=== PATIENT | male | born 1950 | race Caucasian/White ===

== ENCOUNTER → 2016-06-06 | Outpatient (CLI) | payer OTHER ==
[~2016-06-06] MED LIST: ASPI1TAB PO; ATOR1TAB21 PO; DRIS50002 PO; LEVO25TA34 PO; LISI20TA3 PO
[2016-06-06 14:13] LABS: BASO % 0.2 % (0.0-1.0); EOS # 0.1 K/mm3 (0.0-0.50); EOS % 1.3 % (0.0-3.0); LARGE UNSTAINED CELL # 0.1 K/mm3 (0.0-0.4); LARGE UNSTAINED CELL % 1.6 % (0.0-4.0); LYMPH # 1.2 K/mm3 (1.5-4.5); LYMPH % 16.1 % (24.0-44.0); MEAN CORPUSCULAR HEMOGLOBIN 33.2 pg (27.0-33.0); MEAN CORPUSCULAR HGB CONC 34.4 g/dl (32.0-36.5); MEAN CORPUSCULAR VOLUME 96.4 fl (80.0-96.0); MONO # 0.3 K/mm3 (0.0-0.8); MONO % 3.6 % (0.0-5.0); NEUTROPHILS # 5.6 K/mm3 (1.8-7.7); NEUTROPHILS % 77.2 % (36.0-66.0); PLATELET COUNT, AUTOMATED 255 k/mm3 (150-450); RED CELL DISTRIBUTION WIDTH 13.1 % (11.5-14.5); WHITE BLOOD COUNT 7.2 K/mm3 (4.0-10.0)
[2016-06-06 14:19] LABS: ALBUMIN 4.4 GM/DL (3.2-5.2); CALCIUM LEVEL 9.1 MG/DL (8.8-10.2); CREATININE FOR GFR 1.38 MG/DL (0.70-1.30); GLOMERULAR FILTRATION RATE 55.2 (>49); PHOSPHORUS LEVEL 2.6 MG/DL (2.5-4.9); POTASSIUM SERUM 4.6 MEQ/L (3.5-5.1)
== END ==
LOC: M SMT 10:52
PROVIDERS: ATTEND Nurse Practitioner Family
DX: N18.3 Chronic kidney disease, stage 3 (moderate) (principal); D63.1 Anemia in chronic kidney disease; N25.81 Secondary hyperparathyroidism of renal origin; E55.9 Vitamin D deficiency, unspecified

== ENCOUNTER 2016-06-08 09:23 | Emergency (ER) | payer MEDICAID, OTHER ==
[2016-06-08] MEDS ORDERED: ONDANSETRON 4MG/2ML VIAL (J2405) As Ordered ONE (09:42)
[2016-06-08] MEDS ORDERED: ASPIRIN 81 MG CHEW TABLET As Ordered ONE (09:42)
[2016-06-08] MEDS ORDERED: MORPHINE 4 MG/ML 1ML SYRINGE As Ordered ONE (09:43)
[2016-06-08] MEDS ORDERED: hydroCHLOROthiazide 25 MG TAB As Ordered ONE (09:43)
[2016-06-08] MEDS ORDERED: LISINOPRIL 10 MG TAB As Ordered ONE (09:43)
[2016-06-08 09:49] LABS: BASO % 0.1 % (0.0-1.0); EOS % 0.5 % (0.0-3.0); LARGE UNSTAINED CELL # 0.1 K/mm3 (0.0-0.4); LARGE UNSTAINED CELL % 0.5 % (0.0-4.0); LYMPH # 0.5 K/mm3 (1.5-4.5); LYMPH % 4.2 % (24.0-44.0); MEAN CORPUSCULAR HEMOGLOBIN 33.4 pg (27.0-33.0); MEAN CORPUSCULAR HGB CONC 35.3 g/dl (32.0-36.5); MEAN CORPUSCULAR VOLUME 94.6 fl (80.0-96.0); MONO # 0.2 K/mm3 (0.0-0.8); MONO % 1.6 % (0.0-5.0); NEUTROPHILS # 11.1 K/mm3 (1.8-7.7); NEUTROPHILS % 93.1 % (36.0-66.0); PLATELET COUNT, AUTOMATED 241 k/mm3 (150-450); RED CELL DISTRIBUTION WIDTH 12.8 % (11.5-14.5)
[2016-06-08 09:57] LABS: INR 1.04
--- NOTE | 2016-06-08 10:11 | REP ---
Clinical: Chest pain. Comparison: 09/05/2014. Findings: COPD and interstitial changes similar to prior examination. Mediastinum and cardiac silhouette normal. No acute consolidation, effusion, or pneumothorax. Skeletal structures intact. Impression: Chronic COPD and interstitial changes. No new acute process. Signed by Tacos Hutchinson MD 06/08/2016 10:02 A
[2016-06-08 10:13] LABS: ANION GAP 8 MEQ/L (8-16); BLOOD UREA NITROGEN 22 MG/DL (7-18); CARBON DIOXIDE LEVEL 28 MEQ/L (21-32); CHLORIDE LEVEL 105 MEQ/L (98-107); CREATININE FOR GFR 1.46 MG/DL (0.70-1.30); GLOMERULAR FILTRATION RATE 51.7 (>49); GLUCOSE, FASTING 178 MG/DL (80-110); POTASSIUM SERUM 4.3 MEQ/L (3.5-5.1); SODIUM LEVEL 141 MEQ/L (136-145)
[2016-06-08] MEDS ORDERED: ISOVUE-370 76% 100ML VIAL (Q9967) As Ordered ONE (10:34)
[2016-06-08] MEDS ORDERED: IPRATROPIUM 0.5MG/ALBUTEROL 2.5MG INH SOL UD 3ML (DUONEB)(J7620) As Ordered ONE (11:02)
--- NOTE | 2016-06-08 11:05 | REP ---
Clinical: Acute chest pain. Technique: Axial contrast enhanced images from the thoracic inlet to the upper abdomen using 100 ml Isovue 370 intravenous contrast material with coronal and sagittal re-formations. Findings: Satisfactory enhancement of the pulmonary vasculature is achieved and no filling defects are identified to suggest pulmonary embolus. Thoracic aorta is normal caliber without aneurysm or dissection. Heart and pericardium are normal. Lung rothman demonstrate moderate to advanced COPD and emphysematous changes with bullae and bronchiectasis as well as trace basilar fibroatelectatic changes. No acute consolidation, pleural effusion or pneumothorax. Impression: No evidence for pulmonary embolus. Advanced chronic COPD and emphysematous changes. No acute pleuroparenchymal or mediastinal process. Signed by Tacos Hutchinson MD 06/08/2016 10:56 A
[2016-06-08] MEDS ORDERED: predniSONE 20 MG TAB As Ordered ONE (13:51)
--- NOTE | 2016-06-08 14:02 | EDDOCDS ---
Physician Documentation [facility] Name: Guicho Luque Age: 66 yrs Sex: Male : 1950 Arrival Date: 06/08/2016 Time: 09:23 Bed OBSERVATION Private MD: Trevor Medrano P Disposition: 06/08/16 13:37 Discharged to Home/Self Care. Impression: Chronic obstructive pulmonary disease, unspecified. - Condition is Stable. - Discharge Instructions: Chronic Obstructive Pulmonary Disease, How to Use a Nebulizer. - Prescriptions for Prednisone 20 mg Oral Tablet - take 3 tablet by ORAL route once daily for 5 days; 15 tablet. Home Nebulizer - Dx: (type in). Duration: (type in). ipratropium- albuterol 0.5 mg-3 mg(2.5 mg base)/3 mL Inhalation Solution for Nebulization - inhale 1 ampule by INHALATION route 4 times per day As needed; 1 box. - Medication Reconciliation, Local Pharmacy Hours form. - Follow up: Trevor Medrano; When: Call to arrange an appointment. Follow up: Germania Adame RPA-C; When: Call to arrange an appointment. - Problem is an acute exacerbation. - Symptoms have improved. Historical: - Allergies: Codeine Sulfate; - Home Meds: 1. Synthroid 25 mcg oral tab once daily 2. lisinopril 10 mg oral tab twice a day (Last dose: 06/07/2016) 3. oxybutynin chloride 5 mg oral tab 2 times per day 4. 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 No barriers to communication noted, The patient speaks fluent [place], Speaks appropriately for age. - Family history: Not pertinent. - : The pt / caregiver states he / she is not on anticoagulants. Home medication list is obtained from the patient. - Exposure Risk Screening:: None identified. Vital Signs: 06/08 09:25 BP 191 / 87; Pulse 55; Resp 20; Pulse Ox 99% on R/A; Weight 69.85 kg / 153.99 lbs (R); elp Height 5 ft. 8 in. (172.72 cm) (R); Pain 8/10; 09:36 BP 167 / 90 (auto/); pml 09:37 Pulse 48 MON; Pulse Ox 98% ; pml 09:51 BP 162 / 89 (auto/); pml 09:54 Pulse 52 MON; Pulse Ox 95% ; pml 10:06 Pulse 50 MON; Pulse Ox 89% ; pml 10:06 BP 163 / 73 (auto/); pml 10:21 Pulse 56 MON; Pulse Ox 89% ; pml 10:21 BP 152 / 74 (auto/); pml 10:36 BP 131 / 64 (auto/); pml 10:36 Pulse 46 MON; Pulse Ox 92% ; pml 10:51 BP 155 / 75 (auto/); pml 10:51 Pulse 50 MON; Pulse Ox 95% ; pml 11:04 Pulse 64 MON; Pulse Ox 92% ; pml 11:06 BP 148 / 70 (auto/); pml 11:20 Pulse 50 MON; Pulse Ox 90% ; pml 11:21 BP 138 / 74 (auto/); pml 11:35 Pulse 66 MON; Pulse Ox 94% ; pml 11:36 BP 125 / 73 (auto/); pml 11:51 Pulse 46 MON; Pulse Ox 91% ; pml 11:51 BP 130 / 67 (auto/); pml 12:06 Pulse 50 MON; Pulse Ox 92% ; pml 12:06 BP 143 / 76 (auto/); pml 12:21 Pulse 52 MON; Pulse Ox 94% ; pml 12:21 BP 142 / 78 (auto/); pml 12:36 Pulse 54 MON; Pulse Ox 93% ; pml 12:36 BP 141 / 73 (auto/); pml 12:51 Pulse 56 MON; Pulse Ox 100% ; pml 12:51 BP 160 / 74 (auto/); pml 13:54 BP 173 / 92 LA Sitting (auto/reg); Pulse 62; Resp 18; Temp 99.5(TE); Pulse Ox 96% on jrd R/A; Pain 4/10; 09:25 Body Mass Index 23.42 (69.85 kg, 172.72 cm) elp MDM: 09:29 Hand Pattern Marker/Pulse Ox/q 30 min VS ordered. sd1 09:29 IV Saline Lock ordered. sd1 09:29 Rhythm Strip to chart ordered. sd1 09:29 Undress patient appropriately for examination ordered. sd1 09:29 portable chest Ordered. EDMS 09:29 B-Type Natiuretic Peptide Ordered. EDMS 09:29 Basic Metabolic Profile Ordered. EDMS 09:29 CBC with Diff Ordered. EDMS 09:29 Cardiac Injury Profile Ordered. EDMS 09:29 Prothrombin Time Profile\E\INR Ordered. EDMS 09:29 Troponin Ordered. EDMS 09:29 ECG WITH READING ER PHYS+CARDIAG ordered. EDMS 09:36 Aspirin Chewable Tablet 81 mg PO once ordered. sd1 09:37 morphine 4 mg IVP every 15 minutes; Document pain score/vitals after each dose (Hold if sd1 SBP < 90mmHg) x2 ordered. 09:37 Ondansetron 4 mg IVP once ordered. sd1 09:38 Lisinopril 20 mg PO once ordered. sd1 09:38 Hydrochlorothiazide 25 mg PO once ordered. sd1 09:57 [facility] Payment Agreement was scanned into T[employer] and attached to record. jp5 09:57 Financial registration complete. jp5 10:28 Basic Metabolic Profile Reviewed. sd1 10:28 CBC with Diff Reviewed. sd1 10:28 Cardiac Injury Profile Reviewed. sd1 10:28 Prothrombin Time Profile\E\INR Reviewed. sd1 10:28 Troponin Reviewed. sd1 10:28 Albuterol-Ipratropium 3 ml Inhalation once ordered. sd1 10:29 CT Chest Angio R/O PE Ordered. EDMS 10:34 B-Type Natiuretic Peptide Reviewed. sd1 10:49 portable chest Reviewed. sd1 10:58 NS 0.9% 1000 ml IV at 250 mL/hr continuous ordered. sd1 11:01 Redraw CIP &Troponin (put time in details section) ordered. sd1 11:01 Repeat EKG (put time details section) ordered. sd1 11:04 Redraw CIP &Troponin (put time in details section) complete. deg 11:04 Repeat EKG (put time details section) complete. deg 11:04 CARDIAC MARKER PANEL Ordered. EDMS 11:05 ECG WITH READING ER PHYS ordered. EDMS 12:42 CARDIAC MARKER PANEL Reviewed. sd1 12:42 CT Chest Angio R/O PE Reviewed. sd1 12:54 Misc. Nursing Order ordered. sd1 13:43 predniSONE 40 mg PO once; administer with food or milk ordered. sd1 Administered Medications: 09:51 Drug: Ondansetron 4 mg [ondansetron HCl 2 mg/mL intravenous solution (2 mL)] Route: pml IVP; Site: right antecubital; 09:51 Drug: Lisinopril 20 mg [lisinopril 10 mg tablet (2 tabs)] Route: PO; pml 09:51 Drug: Hydrochlorothiazide 25 mg [hydrochlorothiazide 25 mg tablet (1 tabs)] Route: PO; pml 09:52 Drug: morphine 4 mg [morphine 4 mg/mL intravenous cartridge (1 mL)] Route: IVP; Site: pml right antecubital; 09:53 Drug: Aspirin 81 mg [aspirin 81 mg chewable tablet (1 tabs)] Route: PO; pml 11:00 Drug: Albuterol-Ipratropium 3 ml [ipratropium-albuterol 0.5 mg-3 mg(2.5 mg base)/3 mL 6 nebulization soln (3 mL)] Route: Inhalation; 11:09 Drug: NS 0.9% 1000 ml [sodium chloride 0.9 % injection solution] Route: IV; Rate: 250 pml mL/hr; Site: right antecubital; 14:00 Follow up: IV Status: Infusion discontinued; IV Intake: 600ml pml 13:55 Drug: predniSONE 40 mg [prednisone 20 mg tablet (2 tabs)] Route: PO; pml Signatures: Dispatcher [employer] EDMS Lluvia Baca MD MD sd1 Jeanne Miller, [facility] deg Shanon Jhaveri RN RN 1 Cammy Peacock RN RN pml Marcelo Garcia 5 Nic Zazueta 6 The chart was reviewed and I authenticate all verbal orders and agree with the evaluation and treatment provided.Attachments: 09:57 [facility] Payment Agreement [email or web address]
--- NOTE | 2016-06-08 14:02 | EDDOCDS ---
Nurse's Notes [facility] Name: Guicho Luque Age: 66 yrs Sex: Male : 1950 Arrival Date: 06/08/2016 Time: 09:23 Bed OBSERVATION Private MD: Trevor Medrano P Diagnosis: Chronic obstructive pulmonary disease, unspecified Presentation: 06/08 09:32 Presenting complaint: Patient states: woke up at 0400 today with left sided chest pain. hs1 went away after shower - now returned and worse. + SOB. + nausea. Aspirin was not taken prior to arrival. Adult Sepsis Screening: The patient does not have new or worsening altered mentation. Patient's respiratory rate is less than 22. Systolic blood pressure is greater than 100. Patient has a qSOFA score of 0- Negative Sepsis Screen. Suicide/Homicide risk assessment- the patient denies having any suicidal and/or homicidal ideations and does not present with any other emotional, behavioral or mental health complaints. Status: Patient is not a financial services associate or dependent. Transition of care: patient was not received from another setting of care. 09:32 Acuity: KURT Level 2 hs1 09:32 Method Of Arrival: Walkin/Carried/Asstd hs1 Triage Assessment: 09:39 General: Appears in no apparent distress, comfortable, Behavior is cooperative. Pain: hs1 Location: anterior aspect of left upper chest Pain currently is 9 out of 10 on a pain scale. HIV screening NA for this visit Offered previously. Cardiovascular: Chest pain is described as severe, radiates Does not radiate. episodes last > 5 minutes began 4 hours prior to arrival. Historical: - Allergies: Codeine Sulfate; - Home Meds: 1. Synthroid 25 mcg oral tab once daily 2. lisinopril 10 mg oral tab twice a day (Last dose: 06/07/2016) 3. oxybutynin chloride 5 mg oral tab 2 times per day 4. 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 No barriers to communication noted, The patient speaks fluent Dominican, Speaks appropriately for age. - Family history: Not pertinent. - : The pt / caregiver states he / she is not on anticoagulants. Home medication list is obtained from the patient. - Exposure Risk Screening:: None identified. Screenin:38 Screening information is obtained from the patient. Fall risk: No risks identified. pml Assistance ADL's: requires no assistance with activities of daily living. Abuse/DV Screen: The patient / caregiver reports he/she is: not in a situation that causes fear, pain or injury. Nutritional screening: No deficits noted. Advance Directives: Currently, there is no health care proxy. home support is adequate. Assessment: 09:38 General: Appears in no apparent distress, comfortable, Behavior is appropriate for age, pml cooperative. Pain: Location: anterior aspect of left upper chest and left breast Pain currently is 8 out of 10 on a pain scale. Quality of pain is described as stabbing, Pain began 5 hours ago. Neurological: Level of Consciousness is awake, alert, Oriented to person, place, time. Cardiovascular: Capillary refill < 3 seconds Rhythm is sinus bradycardia No ectopy. Respiratory: Airway is patent Respiratory effort is even, unlabored. Respiratory: Reports shortness of breath at rest pain with respiration. GI: Abdomen is non- distended. Derm: Skin is pink, warm & dry. 09:53 General: per pts pharmacy records prescribed 20mg lisinopril (2-10mg tabs) BID - pt pml states he has been taking 0.5 of 10mg tab BID - MD Ainsley lozoya. 10:25 Reassessment: Patient states feeling better. Patient states symptoms have improved. pml General: Appears in no apparent distress, comfortable, Behavior is appropriate for age, cooperative. Pain: Location: left breast Pain currently is 4 out of 10 on a pain scale. Neurological: Level of Consciousness is awake, alert, Oriented to person, place, time. Respiratory: Airway is patent Respiratory effort is even, unlabored. Derm: Skin is pink, warm & dry. 11:10 General: resting on stretcher, no apparent distress. resps easy and unlabored, skin pml p/w/d. sinus rhythm on monitor. IVF infusing as ordered. 11:47 General: Appears in no apparent distress, comfortable, Behavior is appropriate for age, pml cooperative. Pain: Location: anterior aspect of left upper chest and left breast Pain currently is 4 out of 10 on a pain scale. Neurological: Level of Consciousness is awake, alert, Oriented to person, place, time. Cardiovascular: Capillary refill < 3 seconds Rhythm is sinus bradycardia No ectopy. Derm: Skin is pink, warm & dry. 12:45 General: ambulatory in hallway without difficulty or shortness of breath. pml 13:55 General: Appears in no apparent distress, Behavior is appropriate for age, cooperative. pml Pain: Location: chest Pain currently is 4 out of 10 on a pain scale. Neurological: Level of Consciousness is awake, alert, Oriented to person, place, time. Cardiovascular: Capillary refill < 3 seconds Rhythm is sinus bradycardia No ectopy. Respiratory: Airway is patent Respiratory effort is even, unlabored. Derm: Skin is pink, warm & dry. Vital Signs: 09:25 BP 191 / 87; Pulse 55; Resp 20; Pulse Ox 99% on R/A; Weight 69.85 kg (R); Height 5 ft. elp 8 in. (172.72 cm) (R); Pain 8/10; 09:36 BP 167 / 90 (auto/); pml 09:37 Pulse 48 MON; Pulse Ox 98% ; pml 09:51 BP 162 / 89 (auto/); pml 09:54 Pulse 52 MON; Pulse Ox 95% ; pml 10:06 Pulse 50 MON; Pulse Ox 89% ; pml 10:06 BP 163 / 73 (auto/); pml 10:21 Pulse 56 MON; Pulse Ox 89% ; pml 10:21 BP 152 / 74 (auto/); pml 10:36 BP 131 / 64 (auto/); pml 10:36 Pulse 46 MON; Pulse Ox 92% ; pml 10:51 BP 155 / 75 (auto/); pml 10:51 Pulse 50 MON; Pulse Ox 95% ; pml 11:04 Pulse 64 MON; Pulse Ox 92% ; pml 11:06 BP 148 / 70 (auto/); pml 11:20 Pulse 50 MON; Pulse Ox 90% ; pml 11:21 BP 138 / 74 (auto/); pml 11:35 Pulse 66 MON; Pulse Ox 94% ; pml 11:36 BP 125 / 73 (auto/); pml 11:51 Pulse 46 MON; Pulse Ox 91% ; pml 11:51 BP 130 / 67 (auto/); pml 12:06 Pulse 50 MON; Pulse Ox 92% ; pml 12:06 BP 143 / 76 (auto/); pml 12:21 Pulse 52 MON; Pulse Ox 94% ; pml 12:21 BP 142 / 78 (auto/); pml 12:36 Pulse 54 MON; Pulse Ox 93% ; pml 12:36 BP 141 / 73 (auto/); pml 12:51 Pulse 56 MON; Pulse Ox 100% ; pml 12:51 BP 160 / 74 (auto/); pml 13:54 BP 173 / 92 LA Sitting (auto/reg); Pulse 62; Resp 18; Temp 99.5(TE); Pulse Ox 96% on jrd R/A; Pain 4/10; 09:25 Body Mass Index 23.42 (69.85 kg, 172.72 cm) elp Vitals: :25 Log In Time: June 08, 2016 at 09:23. RN notified that patient meets Red Flag elp criteria. ED Course: 09:24 Patient visited by Catherine Disla PCA. elp 09:24 Trevor Medrano is Private Physician. elp 09:24 Patient moved to Waiting elp 09:28 Patient moved to 10 sd1 09:29 Lluvia Baca MD is Attending Physician. sd1 09:31 Patient visited by Lluvia Baca MD. sd1 09:33 Triage Initiated hs1 09:37 Pt greeted and oriented to ED. Patient advised of names of staff involved in care, jrd location of call lord, wait times and NPO status. Patient has correct armband on for positive identification. Placed in gown. Bed in low position. Call light in reach. firebrick and refractory tile repairer on. Pulse ox on. NIBP on. 09:37 EKG done. (by ED staff). Reviewed by Lluvia Baca MD. jrd 09:38 Patient visited by Samuel Deshpande PCA. jrd 09:38 The patient / caregiver is instructed regarding the plan of care and ED course. pml 09:38 Inserted peripheral IV: 18gauge IV in right antecubital area and blood collected. pml Patient tolerated the procedure well. by JUAN Quinn. 09:40 Patient visited by Shanon Jhaveri RN. hs1 09:41 Patient visited by Cammy Peacock,JUAN. pml 09:53 Patient visited by Cammy Peacock,JUAN. pml 09:57 [facility] Payment Agreement was scanned into [employer] and attached to record. jp5 10:27 Patient visited by Cammy Peacock RN. pml 10:48 portable chest Returned. EDMS 11:11 Patient visited by Cammy Peacock RN. pml 11:26 Patient moved to OBSERVATION sd1 11:30 CT Chest Angio R/O PE Returned. EDMS 11:48 Patient visited by Cammy Peacock,JUAN. pml 13:28 Patient visited by Cammy Peacock,JUAN. pml 13:36 Trevor Medrano is Referral Physician. sd1 13:36 Germania Adame RPA-C is Referral Physician. sd1 13:54 Patient visited by Samuel Deshpande PCA. jrd 13:55 Discontinued lock intact, bleeding controlled, pressure dressing applied, No pml redness/swelling at site. No procedures done that require assistance. Administered Medications: 09:51 Drug: Ondansetron 4 mg [ondansetron HCl 2 mg/mL intravenous solution (2 mL)] Route: pml IVP; Site: right antecubital; 09:51 Drug: Lisinopril 20 mg [lisinopril 10 mg tablet (2 tabs)] Route: PO; pml 09:51 Drug: Hydrochlorothiazide 25 mg [hydrochlorothiazide 25 mg tablet (1 tabs)] Route: PO; pml 09:52 Drug: morphine 4 mg [morphine 4 mg/mL intravenous cartridge (1 mL)] Route: IVP; Site: pml right antecubital; 09:53 Drug: Aspirin 81 mg [aspirin 81 mg chewable tablet (1 tabs)] Route: PO; pml 11:00 Drug: Albuterol-Ipratropium 3 ml [ipratropium-albuterol 0.5 mg-3 mg(2.5 mg base)/3 mL jh6 nebulization soln (3 mL)] Route: Inhalation; 11:09 Drug: NS 0.9% 1000 ml [sodium chloride 0.9 % injection solution] Route: IV; Rate: 250 pml mL/hr; Site: right antecubital; 14:00 Follow up: IV Status: Infusion discontinued; IV Intake: 600ml pml 13:55 Drug: predniSONE 40 mg [prednisone 20 mg tablet (2 tabs)] Route: PO; pml Intake: 14:00 IV: 600.00ml; Total: 600.00ml. pml RT: 11:05 Respiratory: Airway is patent Respiratory effort is even, unlabored, Respiratory jh6 pattern is regular symmetrical, Breath sounds with rhonchi in right posterior middle lobe Breath sounds are diminished in left posterior upper lobe, right posterior upper lobe, left posterior lower lobe, right posterior middle lobe and right posterior lower lobe. 11:05 Initial Med Neb Given as ordered Patient was instructed and evaluated on procedure jh6 Patient tolerated procedure well without adverse effect. Order Results: Lab Order: B-Type Natiuretic Peptide; SPEC'M 06/08/16 09:32 Test: BRAIN NATRIURETIC PEPTIDE; Value: 12.5; Range: <100; Units: PG/ML; Status: F Lab Order: Basic Metabolic Profile; SPEC'M 06/08/16 09:32 Test: GLUCOSE, FASTING; Value: 178; Range: 80-110; Abnormal: Above high normal; Units: MG/DL; Status: F Test: BLOOD UREA NITROGEN; Value: 22; Range: 7-18; Abnormal: Above high normal; Units: MG/DL; Status: F Test: CREATININE FOR GFR; Value: 1.46; Range: 0.70-1.30; Abnormal: Above high normal; Units: MG/DL; Status: F Test: GLOMERULAR FILTRATION RATE; Value: 51.7; Range: >49; Status: F Test: SODIUM LEVEL; Value: 141; Range: 136-145; Units: MEQ/L; Status: F Test: POTASSIUM SERUM; Value: 4.3; Range: 3.5-5.1; Units: MEQ/L; Status: F Test: CHLORIDE LEVEL; Value: 105; Range: 98-107; Units: MEQ/L; Status: F Test: CARBON DIOXIDE LEVEL; Value: 28; Range: 21-32; Units: MEQ/L; Status: F Test: ANION GAP; Value: 8; Range: 8-16; Units: MEQ/L; Status: F Test: CALCIUM LEVEL; Value: 9.0; Range: 8.8-10.2; Units: MG/DL; Status: F Test Note: ; Units are mL/min/1.73 m2 Chronic Kidney Disease Staging per NKF: Stage I & II GFR >=60 Normal to Mildly Decreased Stage III GFR 30-59 Moderately Decreased Stage IV GFR 15-29 Severely Decreased Stage V GFR <15 Very Little GFR Left ESRD GFR <15 on BOOKKEEPER ASSISTANT Lab Order: CBC with Diff; SPEC'M 06/08/16 09:32 Test: WHITE BLOOD COUNT; Value: 12.0; Range: 4.0-10.0; Abnormal: Above high normal; Units: K/mm3; Status: F Test: RED BLOOD COUNT; Value: 4.62; Range: 4.30-6.10; Units: M/mm3; Status: F Test: HEMOGLOBIN; Value: 15.4; Range: 14.0-18.0; Units: g/dl; Status: F Test: HEMATOCRIT; Value: 43.7; Range: 42.0-52.0; Units: %; Status: F Test: MEAN CORPUSCULAR VOLUME; Value: 94.6; Range: 80.0-96.0; Units: fl; Status: F Test: MEAN CORPUSCULAR HEMOGLOBIN; Value: 33.4; Range: 27.0-33.0; Abnormal: Above high normal; Units: pg; Status: F Test: MEAN CORPUSCULAR HGB CONC; Value: 35.3; Range: 32.0-36.5; Units: g/dl; Status: F Test: RED CELL DISTRIBUTION WIDTH; Value: 12.8; Range: 11.5-14.5; Units: %; Status: F Test: PLATELET COUNT, AUTOMATED; Value: 241; Range: 150-450; Units: k/mm3; Status: F Test: NEUTROPHILS %; Value: 93.1; Range: 36.0-66.0; Abnormal: Above high normal; Units: %; Status: F Test: LYMPH %; Value: 4.2; Range: 24.0-44.0; Abnormal: Below low normal; Units: %; Status: F Test: MONO %; Value: 1.6; Range: 0.0-5.0; Units: %; Status: F Test: EOS %; Value: 0.5; Range: 0.0-3.0; Units: %; Status: F Test: BASO %; Value: 0.1; Range: 0.0-1.0; Units: %; Status: F Test: LARGE UNSTAINED CELL %; Value: 0.5; Range: 0.0-4.0; Units: %; Status: F Test: NEUTROPHILS #; Value: 11.1; Range: 1.8-7.7; Abnormal: Above high normal; Units: K/mm3; Status: F Test: LYMPH #; Value: 0.5; Range: 1.5-4.5; Abnormal: Below low normal; Units: K/mm3; Status: F Test: MONO #; Value: 0.2; Range: 0.0-0.8; Units: K/mm3; Status: F Test: EOS #; Value: 0.0; Range: 0.0-0.50; Units: K/mm3; Status: F Test: BASO #; Value: 0.0; Range: 0.0-0.2; Units: K/mm3; Status: F Test: LARGE UNSTAINED CELL #; Value: 0.1; Range: 0.0-0.4; Units: K/mm3; Status: F Lab Order: Cardiac Injury Profile; SPEC' 06/08/16 09:32 Test: CPK CREATINE PHOSPHOKINASE; Value: 57; Range: 39-308; Units: U/L; Status: F Test: CK-MB VALUE MASS; Value: 1.3; Range: 0.0-3.6; Units: NG/ML; Status: F Test: MB/CK RELATIVE INDEX; Value: 2.28; Range: < OR =4; Status: F Test Note: ; DIAGNOSIS CRITERIA MMB ng/ml Relative Index (RI) NON-AMI < or = 5 N/A ROWELL ZONE > 5 < or = 4 AMI > 5 > 4 Lab Order: Prothrombin Time Profile\E\INR; SPEC' 06/08/16 09:32 Test: PROTHROMBIN TIME; Value: 13.7; Range: 12.3-14.5; Units: SECONDS; Status: F Test: INR; Value: 1.04; Status: F Test Note: ; THERAPUTIC HUMAN INR VALUES INDICATIONS NORMAL RANGES PROPHYLAXIS/TREATMENT OF: VENOUS THROMBOSIS 2.0-3.0 PULMONARY EMBOLISM 2.0-3.0 PREVENTION OF SYSTEMIC EMBOLISM FROM: TISSUE HEART VALVES 2.0-3.0 ACUTE MYOCARDIAL INFARCTION 2.0-3.0 VALVULAR HEART DISEASE 2.0-3.0 ATRIAL FIBRILLATION 2.0-3.0 MECHANICAL VALVES(HIGH RISK) 2.5-3.5 RECURRENT MYOCARDIAL INFARCTION 2.5-3.5 Lab Order: Troponin; SPEC'M 06/08/16 09:32 Test: TROPONIN I; Value: < 0.02; Range: < 0.10; Units: NG/ML; Status: F Test Note: ; Troponin I Reference Interval for Siemens Harmon LOCI: 99th Percentile= 0.00-0.045 ng/ml Risk Stratification: <= 0.10 ng/ml Decreased Risk for Adverse Clinical Events. 0.10-1.50 ng/ml Increased Risk for Adverse Clinical Events. Evaluation of additional criterion and/or repeat testing in 2-6 hours is suggested to rule out myocardial damage. >= 1.50 ng/ml Indicative of Myocardial Injury. Lab Order: CARDIAC MARKER PANEL; SPEC'M 06/08/16 11:53 Test: CPK CREATINE PHOSPHOKINASE; Value: 46; Range: 39-308; Units: U/L; Status: F Test: CK-MB VALUE MASS; Value: 1.6; Range: 0.0-3.6; Units: NG/ML; Status: F Test: MB/CK RELATIVE INDEX; Value: 3.47; Range: < OR =4; Status: F Test: TROPONIN I; Value: < 0.02; Range: < 0.10; Units: NG/ML; Status: F Test Note: ; DIAGNOSIS CRITERIA MMB ng/ml Relative Index (RI) NON-AMI < or = 5 N/A ROWELL ZONE > 5 < or = 4 AMI > 5 > 4 Radiology Order: portable chest Test: portable chest REASON FOR EXAMINATION: Chest Pain; Clinical: Chest pain.; ; Comparison: 09/05/2014.; ; Findings:; COPD and interstitial changes similar to prior examination. Mediastinum and; cardiac silhouette normal. No acute consolidation, effusion, or pneumothorax.; Skeletal structures intact.; ; Impression:; Chronic COPD and interstitial changes. No new acute process.; ; ; Signed by; Tacos Hutchinson MD 06/08/2016 10:02 A; Radiology Order: CT Chest Angio R/O PE Test: CT Chest Angio R/O PE REASON FOR EXAMINATION: chest pain hypoxia; Clinical: Acute chest pain.; ; Technique: Axial contrast enhanced images from the thoracic inlet to the upper; abdomen using 100 ml Isovue 370 intravenous contrast material with coronal and; sagittal re-formations.; ; Findings: Satisfactory enhancement of the pulmonary vasculature is achieved and; no filling defects are identified to suggest pulmonary embolus. Thoracic aorta; is normal caliber without aneurysm or dissection. Heart and pericardium are; normal. Lung rothman demonstrate moderate to advanced COPD and emphysematous; changes with bullae and bronchiectasis as well as trace basilar fibroatelectatic; changes. No acute consolidation, pleural effusion or pneumothorax.; ; Impression:; No evidence for pulmonary embolus.; Advanced chronic COPD and emphysematous changes.; No acute pleuroparenchymal or mediastinal process.; ; ; Signed by; Tacos Hutchinson MD 06/08/2016 10:56 A; Outcome: 13:37 Discharge ordered by Provider. sd1 13:55 Discharge Assessment: Patient awake, alert and oriented x 3. No cognitive and/or pml functional deficits noted. Patient verbalized understanding of disposition instructions. patient administered narcotics - yes. Pt provided with safe discharge. The following High Risk Discharge criteria are identified: None. Admitted. Condition: good Condition: stable. Discharge instructions given to patient, Instructed on discharge instructions, follow up and referral plans. medication usage, Demonstrated understanding of instructions, medications, Pt was receptive of discharge instructions/ teaching. Prescriptions given X 3. CT Study completed. Property sent home with patient. 14:01 Patient left the ED. pml Signatures: Dispatcher [employer] EDMS Lluvia Baca MD MD sd1 Shanon Jhaveri, RN RN hs1 Nic Zazueta jh6 Cammy Peacock RN RN pml Catherine Disla, CYTOGENETIC TECHNICIAN CYTOGENETIC TECHNICIAN Samuel Lundy, CYTOGENETIC TECHNICIAN CYTOGENETIC TECHNICIAN Marcelo Loaiza jp5 MTDD
--- NOTE | 2016-06-09 07:22 | ECGEPIP ---
Stationary ECG Study [facility] - ED Test Date: 2016-06-08 Pat Name: NEDA BARAKAT Department: Room: - Gender: M Manager Mobile: jose : 1950 Requested By: Lluvia Baca Order Number: [id number] Reading MD: Lluvia Baca Measurements Intervals [place] Rate: 44 P: 61 VT: 127 QRS: 48 QRSD: 81 T: 38 QT: 485 QTc: 419 Interpretive Statements SINUS BRADYCARDIA NONSPECIFIC ST & T-WAVE ABNORMALITY DECREASED RATE/QTC COMPARED 07/14/11 Electronically Signed On 06-09-2016 7:22:18 EST by Lluvia Baca
--- NOTE | 2016-06-09 07:24 | ECGEPIP ---
Stationary ECG Study [facility] - ED Test Date: 2016-06-08 Pat Name: NEDA BARAKAT Department: Room: - Gender: M Manager Licensing: rn : 1950 Requested By: Lluvia Baca Order Number: [id number] Reading MD: Lluvia Baca Measurements Intervals [place] Rate: 50 P: 57 SD: 146 QRS: 31 QRSD: 85 T: 38 QT: 484 QTc: 445 Interpretive Statements SINUS BRADYCARDIA WITH SINUS ARRHYTHMIA NSTTW ABNORMALITY SIMILAR 9:32 Electronically Signed On 06-09-2016 7:23:56 EST by Lluvia Baca
--- NOTE | 2016-06-10 15:01 | EDDOCDS ---
Physician Documentation [facility] Name: Guicho Luque Age: 66 yrs Sex: Male : 1950 Arrival Date: 06/08/2016 Time: 09:23 Bed OBSERVATION Private MD: Trevor Medrano P Disposition: 06/08/16 13:37 Discharged to Home/Self Care. Impression: Chronic obstructive pulmonary disease, unspecified. - Condition is Stable. - Discharge Instructions: Chronic Obstructive Pulmonary Disease, How to Use a Nebulizer. - Prescriptions for Prednisone 20 mg Oral Tablet - take 3 tablet by ORAL route once daily for 5 days; 15 tablet. Home Nebulizer - Dx: (type in). Duration: (type in). ipratropium- albuterol 0.5 mg-3 mg(2.5 mg base)/3 mL Inhalation Solution for Nebulization - inhale 1 ampule by INHALATION route 4 times per day As needed; 1 box. - Medication Reconciliation, Local Pharmacy Hours form. - Follow up: Trevor Medrano; When: Call to arrange an appointment. Follow up: Germania Adame RPA-C; When: Call to arrange an appointment. - Problem is an acute exacerbation. - Symptoms have improved. Historical: - Allergies: Codeine Sulfate; - Home Meds: 1. Synthroid 25 mcg oral tab once daily 2. lisinopril 10 mg oral tab twice a day (Last dose: 06/07/2016) 3. oxybutynin chloride 5 mg oral tab 2 times per day 4. 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 No barriers to communication noted, The patient speaks fluent [place]ian, Speaks appropriately for age. - Family history: Not pertinent. - : The pt / caregiver states he / she is not on anticoagulants. Home medication list is obtained from the patient. - Exposure Risk Screening:: None identified. Vital Signs: 06/08 09:25 BP 191 / 87; Pulse 55; Resp 20; Pulse Ox 99% on R/A; Weight 69.85 kg / 153.99 lbs (R); elp Height 5 ft. 8 in. (172.72 cm) (R); Pain 8/10; 09:36 BP 167 / 90 (auto/); pml 09:37 Pulse 48 MON; Pulse Ox 98% ; pml 09:51 BP 162 / 89 (auto/); pml 09:54 Pulse 52 MON; Pulse Ox 95% ; pml 10:06 Pulse 50 MON; Pulse Ox 89% ; pml 10:06 BP 163 / 73 (auto/); pml 10:21 Pulse 56 MON; Pulse Ox 89% ; pml 10:21 BP 152 / 74 (auto/); pml 10:36 BP 131 / 64 (auto/); pml 10:36 Pulse 46 MON; Pulse Ox 92% ; pml 10:51 BP 155 / 75 (auto/); pml 10:51 Pulse 50 MON; Pulse Ox 95% ; pml 11:04 Pulse 64 MON; Pulse Ox 92% ; pml 11:06 BP 148 / 70 (auto/); pml 11:20 Pulse 50 MON; Pulse Ox 90% ; pml 11:21 BP 138 / 74 (auto/); pml 11:35 Pulse 66 MON; Pulse Ox 94% ; pml 11:36 BP 125 / 73 (auto/); pml 11:51 Pulse 46 MON; Pulse Ox 91% ; pml 11:51 BP 130 / 67 (auto/); pml 12:06 Pulse 50 MON; Pulse Ox 92% ; pml 12:06 BP 143 / 76 (auto/); pml 12:21 Pulse 52 MON; Pulse Ox 94% ; pml 12:21 BP 142 / 78 (auto/); pml 12:36 Pulse 54 MON; Pulse Ox 93% ; pml 12:36 BP 141 / 73 (auto/); pml 12:51 Pulse 56 MON; Pulse Ox 100% ; pml 12:51 BP 160 / 74 (auto/); pml 13:54 BP 173 / 92 LA Sitting (auto/reg); Pulse 62; Resp 18; Temp 99.5(TE); Pulse Ox 96% on jrd R/A; Pain 4/10; 09:25 Body Mass Index 23.42 (69.85 kg, 172.72 cm) elp MDM: 09:29 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 sd1 09:29 IV Saline Lock ordered. sd1 09:29 Rhythm Strip to chart ordered. sd1 09:29 Undress patient appropriately for examination ordered. sd1 09:29 portable chest Ordered. EDMS 09:29 B-Type Natiuretic Peptide Ordered. EDMS 09:29 Basic Metabolic Profile Ordered. EDMS 09:29 CBC with Diff Ordered. EDMS 09:29 Cardiac Injury Profile Ordered. EDMS 09:29 Prothrombin Time Profile\E\INR Ordered. EDMS 09:29 Troponin Ordered. EDMS 09:29 ECG WITH READING ER PHYS+CARDIAG ordered. EDMS 09:36 Aspirin Chewable Tablet 81 mg PO once ordered. sd1 09:37 morphine 4 mg IVP every 15 minutes; Document pain score/vitals after each dose (Hold if sd1 SBP < 90mmHg) x2 ordered. 09:37 Ondansetron 4 mg IVP once ordered. sd1 09:38 Lisinopril 20 mg PO once ordered. sd1 09:38 Hydrochlorothiazide 25 mg PO once ordered. sd1 09:57 [facility] [place] Agreement was scanned into [employer] and attached to record. jp5 09:57 Financial registration complete. jp5 10:28 Basic Metabolic Profile Reviewed. sd1 10:28 CBC with Diff Reviewed. sd1 10:28 Cardiac Injury Profile Reviewed. sd1 10:28 Prothrombin Time Profile\E\INR Reviewed. sd1 10:28 Troponin Reviewed. sd1 10:28 Albuterol-Ipratropium 3 ml Inhalation once ordered. sd1 10:29 CT Chest Angio R/O PE Ordered. EDMS 10:34 B-Type Natiuretic Peptide Reviewed. sd1 10:49 portable chest Reviewed. sd1 10:58 NS 0.9% 1000 ml IV at 250 mL/hr continuous ordered. sd1 11:01 Redraw CIP &Troponin (put time in details section) ordered. sd1 11:01 Repeat EKG (put time details section) ordered. sd1 11:04 Redraw CIP &Troponin (put time in details section) complete. deg 11:04 Repeat EKG (put time details section) complete. deg 11:04 CARDIAC MARKER PANEL Ordered. EDMS 11:05 ECG WITH READING ER PHYS ordered. EDMS 12:42 CARDIAC MARKER PANEL Reviewed. sd1 12:42 CT Chest Angio R/O PE Reviewed. sd1 12:54 Misc. Nursing Order ordered. sd1 13:43 predniSONE 40 mg PO once; administer with food or milk ordered. sd1 15:12 T-Sheet-- Draft Copy was scanned into [employer] and attached to record. klr 15:14 ECG/EKG was scanned into [employer] and attached to record. klr Administered Medications: 09:51 Drug: Ondansetron 4 mg [ondansetron HCl 2 mg/mL intravenous solution (2 mL)] Route: pml IVP; Site: right antecubital; 09:51 Drug: Lisinopril 20 mg [lisinopril 10 mg tablet (2 tabs)] Route: PO; pml 09:51 Drug: Hydrochlorothiazide 25 mg [hydrochlorothiazide 25 mg tablet (1 tabs)] Route: PO; pml 09:52 Drug: morphine 4 mg [morphine 4 mg/mL intravenous cartridge (1 mL)] Route: IVP; Site: pml right antecubital; 09:53 Drug: Aspirin 81 mg [aspirin 81 mg chewable tablet (1 tabs)] Route: PO; pml 11:00 Drug: Albuterol-Ipratropium 3 ml [ipratropium-albuterol 0.5 mg-3 mg(2.5 mg base)/3 mL [facility] nebulization soln (3 mL)] Route: Inhalation; 11:09 Drug: NS 0.9% 1000 ml [sodium chloride 0.9 % injection solution] Route: IV; Rate: 250 pml mL/hr; Site: right antecubital; 14:00 Follow up: IV Status: Infusion discontinued; IV Intake: 600ml pml 13:55 Drug: predniSONE 40 mg [prednisone 20 mg tablet (2 tabs)] Route: PO; pml Signatures: Dispatcher [employer] Lluvia Sampson MD MD sd1 Jeanne Miller, Pool Technician Unit deg Shanon Jhaveri RN RN hs1 Cammy Peacock RN RN pml Marcelo Garcia jp5 Amna Terry Jacob 6 The chart was reviewed and I authenticate all verbal orders and agree with the evaluation and treatment provided.Attachments: 09:57 [facility] Payment Agreement jp5 15:12 T-Sheet-- Draft Copy klr 15:14 ECG/EKG klr Chart Complete MTDD
--- NOTE | 2016-06-10 15:01 | EDDOCDS ---
Nurse's Notes [facility] Name: Guicho Barakat Age: 66 yrs Sex: Male : 1950 Arrival Date: 06/08/2016 Time: 09:23 Bed OBSERVATION Private MD: Trevor Medrano P Diagnosis: Chronic obstructive pulmonary disease, unspecified Presentation: 06/08 09:32 Presenting complaint: Patient states: woke up at 0400 today with left sided chest pain. hs1 went away after shower - now returned and worse. + SOB. + nausea. Aspirin was not taken prior to arrival. Adult Sepsis Screening: The patient does not have new or worsening altered mentation. Patient's respiratory rate is less than 22. Systolic blood pressure is greater than 100. Patient has a qSOFA score of 0- Negative Sepsis Screen. Suicide/Homicide risk assessment- the patient denies having any suicidal and/or homicidal ideations and does not present with any other emotional, behavioral or mental health complaints. Status: Patient is not a service delivery director or dependent. Transition of care: patient was not received from another setting of care. 09:32 Acuity: KURT Level 2 hs1 09:32 Method Of Arrival: Walkin/Carried/Asstd hs1 Triage Assessment: 09:39 General: Appears in no apparent distress, comfortable, Behavior is cooperative. Pain: hs1 Location: anterior aspect of left upper chest Pain currently is 9 out of 10 on a pain scale. HIV screening NA for this visit Offered previously. Cardiovascular: Chest pain is described as severe, radiates Does not radiate. episodes last > 5 minutes began 4 hours prior to arrival. Historical: - Allergies: Codeine Sulfate; - Home Meds: 1. Synthroid 25 mcg oral tab once daily 2. lisinopril 10 mg oral tab twice a day (Last dose: 06/07/2016) 3. oxybutynin chloride 5 mg oral tab 2 times per day 4. 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 No barriers to communication noted, The patient speaks fluent [place], Speaks appropriately for age. - Family history: Not pertinent. - : The pt / caregiver states he / she is not on anticoagulants. Home medication list is obtained from the patient. - Exposure Risk Screening:: None identified. Screenin:38 Screening information is obtained from the patient. Fall risk: No risks identified. pml Assistance ADL's: requires no assistance with activities of daily living. Abuse/DV Screen: The patient / caregiver reports he/she is: not in a situation that causes fear, pain or injury. Nutritional screening: No deficits noted. Advance Directives: Currently, there is no health care proxy. home support is adequate. Assessment: 09:38 General: Appears in no apparent distress, comfortable, Behavior is appropriate for age, pml cooperative. Pain: Location: anterior aspect of left upper chest and left breast Pain currently is 8 out of 10 on a pain scale. Quality of pain is described as stabbing, Pain began 5 hours ago. Neurological: Level of Consciousness is awake, alert, Oriented to person, place, time. Cardiovascular: Capillary refill < 3 seconds Rhythm is sinus bradycardia No ectopy. Respiratory: Airway is patent Respiratory effort is even, unlabored. Respiratory: Reports shortness of breath at rest pain with respiration. GI: Abdomen is non- distended. Derm: Skin is pink, warm & dry. 09:53 General: per pts pharmacy records prescribed 20mg lisinopril (2-10mg tabs) BID - pt pml states he has been taking 0.5 of 10mg tab BID - MD Ainsley lozoya. 10:25 Reassessment: Patient states feeling better. Patient states symptoms have improved. pml General: Appears in no apparent distress, comfortable, Behavior is appropriate for age, cooperative. Pain: Location: left breast Pain currently is 4 out of 10 on a pain scale. Neurological: Level of Consciousness is awake, alert, Oriented to person, place, time. Respiratory: Airway is patent Respiratory effort is even, unlabored. Derm: Skin is pink, warm & dry. 11:10 General: resting on stretcher, no apparent distress. resps easy and unlabored, skin pml p/w/d. sinus rhythm on monitor. IVF infusing as ordered. 11:47 General: Appears in no apparent distress, comfortable, Behavior is appropriate for age, pml cooperative. Pain: Location: anterior aspect of left upper chest and left breast Pain currently is 4 out of 10 on a pain scale. Neurological: Level of Consciousness is awake, alert, Oriented to person, place, time. Cardiovascular: Capillary refill < 3 seconds Rhythm is sinus bradycardia No ectopy. Derm: Skin is pink, warm & dry. 12:45 General: ambulatory in hallway without difficulty or shortness of breath. pml 13:55 General: Appears in no apparent distress, Behavior is appropriate for age, cooperative. pml Pain: Location: chest Pain currently is 4 out of 10 on a pain scale. Neurological: Level of Consciousness is awake, alert, Oriented to person, place, time. Cardiovascular: Capillary refill < 3 seconds Rhythm is sinus bradycardia No ectopy. Respiratory: Airway is patent Respiratory effort is even, unlabored. Derm: Skin is pink, warm & dry. Vital Signs: 09:25 BP 191 / 87; Pulse 55; Resp 20; Pulse Ox 99% on R/A; Weight 69.85 kg (R); Height 5 ft. elp 8 in. (172.72 cm) (R); Pain 8/10; 09:36 BP 167 / 90 (auto/); pml 09:37 Pulse 48 MON; Pulse Ox 98% ; pml 09:51 BP 162 / 89 (auto/); pml 09:54 Pulse 52 MON; Pulse Ox 95% ; pml 10:06 Pulse 50 MON; Pulse Ox 89% ; pml 10:06 BP 163 / 73 (auto/); pml 10:21 Pulse 56 MON; Pulse Ox 89% ; pml 10:21 BP 152 / 74 (auto/); pml 10:36 BP 131 / 64 (auto/); pml 10:36 Pulse 46 MON; Pulse Ox 92% ; pml 10:51 BP 155 / 75 (auto/); pml 10:51 Pulse 50 MON; Pulse Ox 95% ; pml 11:04 Pulse 64 MON; Pulse Ox 92% ; pml 11:06 BP 148 / 70 (auto/); pml 11:20 Pulse 50 MON; Pulse Ox 90% ; pml 11:21 BP 138 / 74 (auto/); pml 11:35 Pulse 66 MON; Pulse Ox 94% ; pml 11:36 BP 125 / 73 (auto/); pml 11:51 Pulse 46 MON; Pulse Ox 91% ; pml 11:51 BP 130 / 67 (auto/); pml 12:06 Pulse 50 MON; Pulse Ox 92% ; pml 12:06 BP 143 / 76 (auto/); pml 12:21 Pulse 52 MON; Pulse Ox 94% ; pml 12:21 BP 142 / 78 (auto/); pml 12:36 Pulse 54 MON; Pulse Ox 93% ; pml 12:36 BP 141 / 73 (auto/); pml 12:51 Pulse 56 MON; Pulse Ox 100% ; pml 12:51 BP 160 / 74 (auto/); pml 13:54 BP 173 / 92 LA Sitting (auto/reg); Pulse 62; Resp 18; Temp 99.5(TE); Pulse Ox 96% on jrd R/A; Pain 4/10; 09:25 Body Mass Index 23.42 (69.85 kg, 172.72 cm) elp Vitals: :25 Log In Time: June 08, 2016 at 09:23. RN notified that patient meets Red Flag elp criteria. ED Course: 09:24 Patient visited by Catherine Disla PCA. elp 09:24 Trevor Medrano is Private Physician. elp 09:24 Patient moved to Waiting elp 09:28 Patient moved to 10 sd1 09:29 Lluvia Baca MD is Attending Physician. sd1 09:31 Patient visited by Lluvia Baca MD. sd1 09:33 Triage Initiated hs1 09:37 Pt greeted and oriented to ED. Patient advised of names of staff involved in care, jrd location of call lord, wait times and NPO status. Patient has correct armband on for positive identification. Placed in gown. Bed in low position. Call light in reach. compliance paralegal on. Pulse ox on. NIBP on. 09:37 EKG done. (by ED staff). Reviewed by Lluvia Baca MD. jrd 09:38 Patient visited by Samuel Deshpande PCA. jrd 09:38 The patient / caregiver is instructed regarding the plan of care and ED course. pml 09:38 Inserted peripheral IV: 18gauge IV in right antecubital area and blood collected. pml Patient tolerated the procedure well. by JUAN Quinn. 09:40 Patient visited by Shanon Jhaveri RN. hs1 09:41 Patient visited by Cammy Peacock,JUAN. pml 09:53 Patient visited by Cammy Peacock,JUAN. pml 09:57 [facility] Payment Agreement was scanned into [employer] and attached to record. jp5 10:27 Patient visited by Cammy Peacock,JUAN. pml 10:48 portable chest Returned. EDMS 11:11 Patient visited by Cammy Peacock,JUAN. pml 11:26 Patient moved to OBSERVATION sd1 11:30 CT Chest Angio R/O PE Returned. EDMS 11:48 Patient visited by Cammy Peacock,JUAN. pml 13:28 Patient visited by Cammy Peacock,JUAN. pml 13:36 Trevor Medrano is Referral Physician. sd1 13:36 Germania Adame RPA-C is Referral Physician. sd1 13:54 Patient visited by Samuel Deshpande PCA. jrd 13:55 Discontinued lock intact, bleeding controlled, pressure dressing applied, No pml redness/swelling at site. No procedures done that require assistance. 15:12 T-Sheet-- Draft Copy was scanned into [employer] and attached to record. klr 15:14 ECG/EKG was scanned into [employer] and attached to record. klr 06/09 07:25 EKG-ADULT Returned. EDMS 07:26 ECG WITH READING ER PHYS Returned. EDMS Administered Medications: 06/08 09:51 Drug: Ondansetron 4 mg [ondansetron HCl 2 mg/mL intravenous solution (2 mL)] Route: pml IVP; Site: right antecubital; 09:51 Drug: Lisinopril 20 mg [lisinopril 10 mg tablet (2 tabs)] Route: PO; pml 09:51 Drug: Hydrochlorothiazide 25 mg [hydrochlorothiazide 25 mg tablet (1 tabs)] Route: PO; pml 09:52 Drug: morphine 4 mg [morphine 4 mg/mL intravenous cartridge (1 mL)] Route: IVP; Site: pml right antecubital; 09:53 Drug: Aspirin 81 mg [aspirin 81 mg chewable tablet (1 tabs)] Route: PO; pml 11:00 Drug: Albuterol-Ipratropium 3 ml [ipratropium-albuterol 0.5 mg-3 mg(2.5 mg base)/3 mL jh6 nebulization soln (3 mL)] Route: Inhalation; 11:09 Drug: NS 0.9% 1000 ml [sodium chloride 0.9 % injection solution] Route: IV; Rate: 250 pml mL/hr; Site: right antecubital; 14:00 Follow up: IV Status: Infusion discontinued; IV Intake: 600ml pml 13:55 Drug: predniSONE 40 mg [prednisone 20 mg tablet (2 tabs)] Route: PO; pml Intake: 14:00 IV: 600.00ml; Total: 600.00ml. pml RT: 11:05 Respiratory: Airway is patent Respiratory effort is even, unlabored, Respiratory jh6 pattern is regular symmetrical, Breath sounds with rhonchi in right posterior middle lobe Breath sounds are diminished in left posterior upper lobe, right posterior upper lobe, left posterior lower lobe, right posterior middle lobe and right posterior lower lobe. 11:05 Initial Med Neb Given as ordered Patient was instructed and evaluated on procedure jh6 Patient tolerated procedure well without adverse effect. Order Results: Lab Order: B-Type Natiuretic Peptide; SPEC'M 06/08/16 09:32 Test: BRAIN NATRIURETIC PEPTIDE; Value: 12.5; Range: <100; Units: PG/ML; Status: F Lab Order: Basic Metabolic Profile; SPEC'M 06/08/16 09:32 Test: GLUCOSE, FASTING; Value: 178; Range: 80-110; Abnormal: Above high normal; Units: MG/DL; Status: F Test: BLOOD UREA NITROGEN; Value: 22; Range: 7-18; Abnormal: Above high normal; Units: MG/DL; Status: F Test: CREATININE FOR GFR; Value: 1.46; Range: 0.70-1.30; Abnormal: Above high normal; Units: MG/DL; Status: F Test: GLOMERULAR FILTRATION RATE; Value: 51.7; Range: >49; Status: F Test: SODIUM LEVEL; Value: 141; Range: 136-145; Units: MEQ/L; Status: F Test: POTASSIUM SERUM; Value: 4.3; Range: 3.5-5.1; Units: MEQ/L; Status: F Test: CHLORIDE LEVEL; Value: 105; Range: 98-107; Units: MEQ/L; Status: F Test: CARBON DIOXIDE LEVEL; Value: 28; Range: 21-32; Units: MEQ/L; Status: F Test: ANION GAP; Value: 8; Range: 8-16; Units: MEQ/L; Status: F Test: CALCIUM LEVEL; Value: 9.0; Range: 8.8-10.2; Units: MG/DL; Status: F Test Note: ; Units are mL/min/1.73 m2 Chronic Kidney Disease Staging per NKF: Stage I & II GFR >=60 Normal to Mildly Decreased Stage III GFR 30-59 Moderately Decreased Stage IV GFR 15-29 Severely Decreased Stage V GFR <15 Very Little GFR Left ESRD GFR <15 on CARTOONIST SPECIAL EFFECTS Lab Order: CBC with Diff; SPEC'M 06/08/16 09:32 Test: WHITE BLOOD COUNT; Value: 12.0; Range: 4.0-10.0; Abnormal: Above high normal; Units: K/mm3; Status: F Test: RED BLOOD COUNT; Value: 4.62; Range: 4.30-6.10; Units: M/mm3; Status: F Test: HEMOGLOBIN; Value: 15.4; Range: 14.0-18.0; Units: g/dl; Status: F Test: HEMATOCRIT; Value: 43.7; Range: 42.0-52.0; Units: %; Status: F Test: MEAN CORPUSCULAR VOLUME; Value: 94.6; Range: 80.0-96.0; Units: fl; Status: F Test: MEAN CORPUSCULAR HEMOGLOBIN; Value: 33.4; Range: 27.0-33.0; Abnormal: Above high normal; Units: pg; Status: F Test: MEAN CORPUSCULAR HGB CONC; Value: 35.3; Range: 32.0-36.5; Units: g/dl; Status: F Test: RED CELL DISTRIBUTION WIDTH; Value: 12.8; Range: 11.5-14.5; Units: %; Status: F Test: PLATELET COUNT, AUTOMATED; Value: 241; Range: 150-450; Units: k/mm3; Status: F Test: NEUTROPHILS %; Value: 93.1; Range: 36.0-66.0; Abnormal: Above high normal; Units: %; Status: F Test: LYMPH %; Value: 4.2; Range: 24.0-44.0; Abnormal: Below low normal; Units: %; Status: F Test: MONO %; Value: 1.6; Range: 0.0-5.0; Units: %; Status: F Test: EOS %; Value: 0.5; Range: 0.0-3.0; Units: %; Status: F Test: BASO %; Value: 0.1; Range: 0.0-1.0; Units: %; Status: F Test: LARGE UNSTAINED CELL %; Value: 0.5; Range: 0.0-4.0; Units: %; Status: F Test: NEUTROPHILS #; Value: 11.1; Range: 1.8-7.7; Abnormal: Above high normal; Units: K/mm3; Status: F Test: LYMPH #; Value: 0.5; Range: 1.5-4.5; Abnormal: Below low normal; Units: K/mm3; Status: F Test: MONO #; Value: 0.2; Range: 0.0-0.8; Units: K/mm3; Status: F Test: EOS #; Value: 0.0; Range: 0.0-0.50; Units: K/mm3; Status: F Test: BASO #; Value: 0.0; Range: 0.0-0.2; Units: K/mm3; Status: F Test: LARGE UNSTAINED CELL #; Value: 0.1; Range: 0.0-0.4; Units: K/mm3; Status: F Lab Order: Cardiac Injury Profile; SPEC'M 06/08/16 09:32 Test: CPK CREATINE PHOSPHOKINASE; Value: 57; Range: 39-308; Units: U/L; Status: F Test: CK-MB VALUE MASS; Value: 1.3; Range: 0.0-3.6; Units: NG/ML; Status: F Test: MB/CK RELATIVE INDEX; Value: 2.28; Range: < OR =4; Status: F Test Note: ; DIAGNOSIS CRITERIA MMB ng/ml Relative Index (RI) NON-AMI < or = 5 N/A ROWELL ZONE > 5 < or = 4 AMI > 5 > 4 Lab Order: Prothrombin Time Profile\E\INR; SPEC'M 06/08/16 09:32 Test: PROTHROMBIN TIME; Value: 13.7; Range: 12.3-14.5; Units: SECONDS; Status: F Test: INR; Value: 1.04; Status: F Test Note: ; THERAPUTIC HUMAN INR VALUES INDICATIONS NORMAL RANGES PROPHYLAXIS/TREATMENT OF: VENOUS THROMBOSIS 2.0-3.0 PULMONARY EMBOLISM 2.0-3.0 PREVENTION OF SYSTEMIC EMBOLISM FROM: TISSUE HEART VALVES 2.0-3.0 ACUTE MYOCARDIAL INFARCTION 2.0-3.0 VALVULAR HEART DISEASE 2.0-3.0 ATRIAL FIBRILLATION 2.0-3.0 MECHANICAL VALVES(HIGH RISK) 2.5-3.5 RECURRENT MYOCARDIAL INFARCTION 2.5-3.5 Lab Order: Troponin; SPEC'M 06/08/16 09:32 Test: TROPONIN I; Value: < 0.02; Range: < 0.10; Units: NG/ML; Status: F Test Note: ; Troponin I Reference Interval for [employer] LOCI: 99th Percentile= 0.00-0.045 ng/ml Risk Stratification: <= 0.10 ng/ml Decreased Risk for Adverse Clinical Events. 0.10-1.50 ng/ml Increased Risk for Adverse Clinical Events. Evaluation of additional criterion and/or repeat testing in 2-6 hours is suggested to rule out myocardial damage. >= 1.50 ng/ml Indicative of Myocardial Injury. Lab Order: CARDIAC MARKER PANEL; SPEC'M 06/08/16 11:53 Test: CPK CREATINE PHOSPHOKINASE; Value: 46; Range: 39-308; Units: U/L; Status: F Test: CK-MB VALUE MASS; Value: 1.6; Range: 0.0-3.6; Units: NG/ML; Status: F Test: MB/CK RELATIVE INDEX; Value: 3.47; Range: < OR =4; Status: F Test: TROPONIN I; Value: < 0.02; Range: < 0.10; Units: NG/ML; Status: F Test Note: ; DIAGNOSIS CRITERIA MMB ng/ml Relative Index (RI) NON-AMI < or = 5 N/A ROWELL ZONE > 5 < or = 4 AMI > 5 > 4 Radiology Order: portable chest Test: portable chest REASON FOR EXAMINATION: Chest Pain; Clinical: Chest pain.; ; Comparison: 09/05/2014.; ; Findings:; COPD and interstitial changes similar to prior examination. Mediastinum and; cardiac silhouette normal. No acute consolidation, effusion, or pneumothorax.; Skeletal structures intact.; ; Impression:; Chronic COPD and interstitial changes. No new acute process.; ; ; Signed by; Tacos Hutchinson MD 06/08/2016 10:02 A; Radiology Order: EKG-ADULT Test: EKG-ADULT REASON FOR EXAMINATION: Chest Pain; Stationary ECG Study; [facility] ED; ; Test Date: 2016-06-08; Pat Name: GUICHO BARAKAT Department:; Room: -; Gender: M Pants Presser: jose; : 1950 Requested By: Lluvia Baca; Order Number: [id number] Reading MD: Lluvia Baca; Measurements; Intervals [place]; Rate: 44 P: 61; MO: 127 QRS: 48; QRSD: 81 T: 38; QT: 485; QTc: 419; Interpretive Statements; SINUS BRADYCARDIA; NONSPECIFIC ST T-WAVE ABNORMALITY; DECREASED RATE/QTC COMPARED 07/14/11; Electronically Signed On 06-09-2016 7:22:18 EST by Lluvia Baca; Radiology Order: CT Chest Angio R/O PE Test: CT Chest Angio R/O PE REASON FOR EXAMINATION: chest pain hypoxia; Clinical: Acute chest pain.; ; Technique: Axial contrast enhanced images from the thoracic inlet to the upper; abdomen using 100 ml Isovue 370 intravenous contrast material with coronal and; sagittal re-formations.; ; Findings: Satisfactory enhancement of the pulmonary vasculature is achieved and; no filling defects are identified to suggest pulmonary embolus. Thoracic aorta; is normal caliber without aneurysm or dissection. Heart and pericardium are; normal. Lung rothman demonstrate moderate to advanced COPD and emphysematous; changes with bullae and bronchiectasis as well as trace basilar fibroatelectatic; changes. No acute consolidation, pleural effusion or pneumothorax.; ; Impression:; No evidence for pulmonary embolus.; Advanced chronic COPD and emphysematous changes.; No acute pleuroparenchymal or mediastinal process.; ; ; Signed by; Tacos Hutchinson MD 06/08/2016 10:56 A; Radiology Order: ECG WITH READING ER PHYS Test: ECG WITH READING ER PHYS REASON FOR EXAMINATION: CHEST PAIN; Stationary ECG Study; [facility] ED; ; Test Date: 2016-06-08; Pat Name: GUICHO SMITHONNELL Department:; Room: -; Gender: M Pants Presser: [email or web address]; : 1950 Requested By: Lluvia Baca; Order Number: [id number] Reading MD: Llvuia Baca; Measurements; Intervals [place]; Rate: 50 P: 57; MO: 146 QRS: 31; QRSD: 85 T: 38; QT: 484; QTc: 445; Interpretive Statements; SINUS BRADYCARDIA WITH SINUS ARRHYTHMIA; NSTTW ABNORMALITY; SIMILAR 9:32; Electronically Signed On 06-09-2016 7:23:56 EST by Lluvia Baca; Outcome: 13:37 Discharge ordered by Provider. sd1 13:55 Discharge Assessment: Patient awake, alert and oriented x 3. No cognitive and/or pml functional deficits noted. Patient verbalized understanding of disposition instructions. patient administered narcotics - yes. Pt provided with safe discharge. The following High Risk Discharge criteria are identified: None. Admitted. Condition: good Condition: stable. Discharge instructions given to patient, Instructed on discharge instructions, follow up and referral plans. medication usage, Demonstrated understanding of instructions, medications, Pt was receptive of discharge instructions/ teaching. Prescriptions given X 3. CT Study completed. Property sent home with patient. 14:01 Patient left the ED. pml Signatures: Dispatcher [employer] EDMS Lluvia Baca MD MD sd1 Shanon Jhaveri, RN RN 1 Nic Zazueta 6 Cammy Peacock,RN RN pml Catherine Disla, TARRING MACHINE OPERATOR TARRING MACHINE OPERATOR Samuel Lundy, TARRING MACHINE OPERATOR TARRING MACHINE OPERATOR Marcelo Loaiza 5 Amna Terry Chart Complete MTDD
--- NOTE | 2016-06-10 15:01 | EDDOCDS ---
Physician Documentation [facility] Name: Guicho Luque Age: 66 yrs Sex: Male : 1950 Arrival Date: 06/08/2016 Time: 09:23 Bed OBSERVATION Private MD: Trevor Medrano P Disposition: 06/08/16 13:37 Discharged to Home/Self Care. Impression: Chronic obstructive pulmonary disease, unspecified. - Condition is Stable. - Discharge Instructions: Chronic Obstructive Pulmonary Disease, How to Use a Nebulizer. - Prescriptions for Prednisone 20 mg Oral Tablet - take 3 tablet by ORAL route once daily for 5 days; 15 tablet. Home Nebulizer - Dx: (type in). Duration: (type in). ipratropium- albuterol 0.5 mg-3 mg(2.5 mg base)/3 mL Inhalation Solution for Nebulization - inhale 1 ampule by INHALATION route 4 times per day As needed; 1 box. - Medication Reconciliation, Local Pharmacy Hours form. - Follow up: Trevor Medrano; When: Call to arrange an appointment. Follow up: Germania Adame RPA-C; When: Call to arrange an appointment. - Problem is an acute exacerbation. - Symptoms have improved. Historical: - Allergies: Codeine Sulfate; - Home Meds: 1. Synthroid 25 mcg oral tab once daily 2. lisinopril 10 mg oral tab twice a day (Last dose: 06/07/2016) 3. oxybutynin chloride 5 mg oral tab 2 times per day 4. 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 No barriers to communication noted, The patient speaks fluent Tajik, Speaks appropriately for age. - Family history: Not pertinent. - : The pt / caregiver states he / she is not on anticoagulants. Home medication list is obtained from the patient. - Exposure Risk Screening:: None identified. Vital Signs: 06/08 09:25 BP 191 / 87; Pulse 55; Resp 20; Pulse Ox 99% on R/A; Weight 69.85 kg / 153.99 lbs (R); elp Height 5 ft. 8 in. (172.72 cm) (R); Pain 8/10; 09:36 BP 167 / 90 (auto/); pml 09:37 Pulse 48 MON; Pulse Ox 98% ; pml 09:51 BP 162 / 89 (auto/); pml 09:54 Pulse 52 MON; Pulse Ox 95% ; pml 10:06 Pulse 50 MON; Pulse Ox 89% ; pml 10:06 BP 163 / 73 (auto/); pml 10:21 Pulse 56 MON; Pulse Ox 89% ; pml 10:21 BP 152 / 74 (auto/); pml 10:36 BP 131 / 64 (auto/); pml 10:36 Pulse 46 MON; Pulse Ox 92% ; pml 10:51 BP 155 / 75 (auto/); pml 10:51 Pulse 50 MON; Pulse Ox 95% ; pml 11:04 Pulse 64 MON; Pulse Ox 92% ; pml 11:06 BP 148 / 70 (auto/); pml 11:20 Pulse 50 MON; Pulse Ox 90% ; pml 11:21 BP 138 / 74 (auto/); pml 11:35 Pulse 66 MON; Pulse Ox 94% ; pml 11:36 BP 125 / 73 (auto/); pml 11:51 Pulse 46 MON; Pulse Ox 91% ; pml 11:51 BP 130 / 67 (auto/); pml 12:06 Pulse 50 MON; Pulse Ox 92% ; pml 12:06 BP 143 / 76 (auto/); pml 12:21 Pulse 52 MON; Pulse Ox 94% ; pml 12:21 BP 142 / 78 (auto/); pml 12:36 Pulse 54 MON; Pulse Ox 93% ; pml 12:36 BP 141 / 73 (auto/); pml 12:51 Pulse 56 MON; Pulse Ox 100% ; pml 12:51 BP 160 / 74 (auto/); pml 13:54 BP 173 / 92 LA Sitting (auto/reg); Pulse 62; Resp 18; Temp 99.5(TE); Pulse Ox 96% on jrd R/A; Pain 4/10; 09:25 Body Mass Index 23.42 (69.85 kg, 172.72 cm) elp MDM: 09:29 Explosive Operator Grenade/Pulse Ox/q 30 min VS ordered. sd1 09:29 IV Saline Lock ordered. sd1 09:29 Rhythm Strip to chart ordered. sd1 09:29 Undress patient appropriately for examination ordered. sd1 09:29 portable chest Ordered. EDMS 09:29 B-Type Natiuretic Peptide Ordered. EDMS 09:29 Basic Metabolic Profile Ordered. EDMS 09:29 CBC with Diff Ordered. EDMS 09:29 Cardiac Injury Profile Ordered. EDMS 09:29 Prothrombin Time Profile\E\INR Ordered. EDMS 09:29 Troponin Ordered. EDMS 09:29 ECG WITH READING ER PHYS+CARDIAG ordered. EDMS 09:36 Aspirin Chewable Tablet 81 mg PO once ordered. sd1 09:37 morphine 4 mg IVP every 15 minutes; Document pain score/vitals after each dose (Hold if sd1 SBP < 90mmHg) x2 ordered. 09:37 Ondansetron 4 mg IVP once ordered. sd1 09:38 Lisinopril 20 mg PO once ordered. sd1 09:38 Hydrochlorothiazide 25 mg PO once ordered. sd1 09:57 [facility] [place] Agreement was scanned into [employer] and attached to record. jp5 09:57 Financial registration complete. jp5 10:28 Basic Metabolic Profile Reviewed. sd1 10:28 CBC with Diff Reviewed. sd1 10:28 Cardiac Injury Profile Reviewed. sd1 10:28 Prothrombin Time Profile\E\INR Reviewed. sd1 10:28 Troponin Reviewed. sd1 10:28 Albuterol-Ipratropium 3 ml Inhalation once ordered. sd1 10:29 CT Chest Angio R/O PE Ordered. EDMS 10:34 B-Type Natiuretic Peptide Reviewed. sd1 10:49 portable chest Reviewed. sd1 10:58 NS 0.9% 1000 ml IV at 250 mL/hr continuous ordered. sd1 11:01 Redraw CIP &Troponin (put time in details section) ordered. sd1 11:01 Repeat EKG (put time details section) ordered. sd1 11:04 Redraw CIP &Troponin (put time in details section) complete. deg 11:04 Repeat EKG (put time details section) complete. deg 11:04 CARDIAC MARKER PANEL Ordered. EDMS 11:05 ECG WITH READING ER PHYS ordered. EDMS 12:42 CARDIAC MARKER PANEL Reviewed. sd1 12:42 CT Chest Angio R/O PE Reviewed. sd1 12:54 Misc. Nursing Order ordered. sd1 13:43 predniSONE 40 mg PO once; administer with food or milk ordered. sd1 15:12 T-Sheet-- Draft Copy was scanned into [employer] and attached to record. klr 15:14 ECG/EKG was scanned into [employer] and attached to record. klr Administered Medications: 09:51 Drug: Ondansetron 4 mg [ondansetron HCl 2 mg/mL intravenous solution (2 mL)] Route: pml IVP; Site: right antecubital; 09:51 Drug: Lisinopril 20 mg [lisinopril 10 mg tablet (2 tabs)] Route: PO; pml 09:51 Drug: Hydrochlorothiazide 25 mg [hydrochlorothiazide 25 mg tablet (1 tabs)] Route: PO; pml 09:52 Drug: morphine 4 mg [morphine 4 mg/mL intravenous cartridge (1 mL)] Route: IVP; Site: pml right antecubital; 09:53 Drug: Aspirin 81 mg [aspirin 81 mg chewable tablet (1 tabs)] Route: PO; pml 11:00 Drug: Albuterol-Ipratropium 3 ml [ipratropium-albuterol 0.5 mg-3 mg(2.5 mg base)/3 mL [facility] nebulization soln (3 mL)] Route: Inhalation; 11:09 Drug: NS 0.9% 1000 ml [sodium chloride 0.9 % injection solution] Route: IV; Rate: 250 pml mL/hr; Site: right antecubital; 14:00 Follow up: IV Status: Infusion discontinued; IV Intake: 600ml pml 13:55 Drug: predniSONE 40 mg [prednisone 20 mg tablet (2 tabs)] Route: PO; pml Signatures: Dispatcher [employer] Lluvia Sampson MD MD sd1 Jeanne Miller, Tar Worker Unit deg Shanon Jhaveri RN RN hs1 Cammy Peacock RN RN pml Marcelo Garcia jp5 Amna Terry Jacob 6 The chart was reviewed and I authenticate all verbal orders and agree with the evaluation and treatment provided.Attachments: 09:57 [facility] Payment Agreement jp5 15:12 T-Sheet-- Draft Copy klr 15:14 ECG/EKG klr Chart Complete MTDD
== END 2016-06-08 14:01 | disposition home or self-care (01) ==
LOC: M ED 09:23
DX: J44.9 Chronic obstructive pulmonary disease, unspecified (principal); I10 Essential (primary) hypertension; E78.5 Hyperlipidemia, unspecified; E03.9 Hypothyroidism, unspecified; Z87.891 Personal history of nicotine dependence; E78.00 Pure hypercholesterolemia, unspecified; N19 Unspecified kidney failure; Z99.2 Dependence on renal dialysis; Z79.899 Other long term (current) drug therapy; Z79.52 Long term (current) use of systemic steroids; Z88.2 Allergy status to sulfonamides; Z88.5 Allergy status to narcotic agent
CPT/HCPCS: 36415; 71010; 71275; 80048; 82550; 82553; 83880; 85025; 85610; 93005; 93041; 94640; 96361; 96374; 96375; 99285; J2405; Q9967

== ENCOUNTER → 2016-06-13 | Outpatient (REF) | payer OTHER ==
[2016-06-13 14:30] LABS: AMYLASE 41 U/L (25-115)
== END ==
LOC: M LAB REF 13:27
PROVIDERS: ATTEND Internal Medicine Nephrology
DX: K85.90 Acute pancreatitis without necrosis or infection, unspecified (principal)

== ENCOUNTER → 2016-06-19 | Outpatient (CLI) | payer MEDICAID, OTHER ==
--- NOTE | 2016-06-19 13:10 | REP ---
LUMBOSACRAL SPINE: Five views of the lumbosacral spine are performed. There is no compression fracture. There is normal lumbar lordosis. There is mild anterior spondylolisthesis of L4 and L5 due to posterior facet arthropathy with no evidence of spondylolysis. There is mild to moderate diffuse spurring. There is mild disc space narrowing and subchondral sclerosis at all levels. There is sclerosis and spurring at the posterior facet joints of L4-5 and L5-S1. The posterior elements are intact. IMPRESSION: Degenerative changes as above without fracture or dislocation. Signed by Jayce Santiago MD 06/20/2016 12:45 P
== END ==
LOC: M ADAMS 11:56
PROVIDERS: ATTEND Physician Assistant
DX: M54.5 Low back pain (principal)

== ENCOUNTER → 2016-06-20 | Outpatient (CLI) | payer MEDICAID, OTHER ==
--- NOTE | 2016-06-20 08:03 | REP ---
Clinical: Generalized abdominal pain. Technique: Real time rivera scale ultrasound examination using curved array transducer. Findings: Liver, spleen, and pancreas are normal in contour, size and echogenicity without focal hepatic, splenic or pancreatic lesions identified. The gallbladder is unremarkable and without wall cholelithiasis, wall thickening, or pericholecystic fluid. No biliary ductal dilatation is appreciated and the common bile duct measures 5.8 mm diameter. Bilateral kidneys are mildly echogenic but normal in reniform shape without hydronephrosis or significant abnormality. Right kidney measures 11.5 x 5.7 x 5.2 cm with 13 mm midpole and 14 mm lower pole cortical cysts. Left kidney measures 11.1 x 6.1 x 6.0 cm. Abdominal aorta is unremarkable measuring approximately 2 cm maximal diameter. No ascites in the visualized abdomen. Impression: Findings suggesting medical renal disease with too small right renal cysts. Otherwise normal complete abdominal ultrasound. Signed by Tacos Hutchinson MD 06/20/2016 07:54 A
== END ==
LOC: M RAD 06:47
PROVIDERS: ATTEND Internal Medicine Nephrology
DX: R10.84 Generalized abdominal pain (principal); N28.1 Cyst of kidney, acquired

== ENCOUNTER → 2016-12-02 | Outpatient (CLI) | payer OTHER | LOC: M SMT 10:16 | PROVIDERS: ATTEND Nurse Practitioner Women's Health | DX: Z12.5 Encounter for screening for malignant neoplasm of prostate (principal); N40.1 Benign prostatic hyperplasia with lower urinary tract symptoms ==

== ENCOUNTER → 2017-07-09 | Outpatient (REF) | payer MEDICARE ==
[2017-07-09 13:18] LABS: CHOLESTEROL LEVEL 187 MG/DL (<200); CHOLESTEROL RISK RATIO 2.921 (<5); FREE T4 1.04 NG/DL (0.76-1.46); HDL CHOLESTEROL 64 MG/DL (>40); LDL CHOLESTEROL 110.2 MG/DL (<100); NON-HDL-C 123 MG/DL; TRIGLYCERIDES LEVEL 64 MG/DL (<150)
== END ==
LOC: M SFHCADAM 10:47
DX: E03.9 Hypothyroidism, unspecified (principal); E78.4 Other hyperlipidemia
CPT/HCPCS: 84443

== ENCOUNTER → 2017-10-01 | Outpatient (REF) | payer MEDICARE ==
[2017-10-01 12:52] LABS: HEMATOCRIT 43.2 % (42.0-52.0); HEMOGLOBIN 14.6 g/dl (13.5-17.5); MEAN CORPUSCULAR HEMOGLOBIN 32.4 pg (27.0-33.0); MEAN CORPUSCULAR HGB CONC 33.8 g/dl (32.0-36.5); PLATELET COUNT, AUTOMATED 248 10^3/uL (150-450); RED CELL DISTRIBUTION WIDTH 13.6 % (11.5-14.5); WHITE BLOOD COUNT 12.9 10^3/uL (4.0-10.0)
[2017-10-01 13:38] LABS: TOTAL 25(OH) VITAMIN D 31.4 NG/ML (30.0-100.0)
[2017-10-01 14:09] LABS: MALB URINE SIEMENS 20.4 MG/L; MAU/CREAT RATIO 16.8 MCG/MG (0.0-30.0)
[2017-10-01 14:14] LABS: ALBUMIN 4.1 GM/DL (3.2-5.2); ALBUMIN/GLOBULIN RATIO 1.37 (1.00-1.93); ALKALINE PHOSPHATASE 64 U/L (45-117); ALT/SGPT 17 U/L (12-78); ANION GAP 8 MEQ/L (8-16); AST/SGOT 12 U/L (7-37); BILIRUBIN,TOTAL 0.7 MG/DL (0.2-1.0); BLOOD UREA NITROGEN 11 MG/DL (7-18); CALCIUM LEVEL 8.7 MG/DL (8.8-10.2); CARBON DIOXIDE LEVEL 25 MEQ/L (21-32); CHLORIDE LEVEL 109 MEQ/L (98-107); CHOLESTEROL LEVEL 177 MG/DL (<200); CREATININE FOR GFR 1.35 MG/DL (0.70-1.30); FREE T4 1.29 NG/DL (0.76-1.46); GLOMERULAR FILTRATION RATE 56.5 (>49); GLUCOSE, FASTING 114 MG/DL (70-100); HDL CHOLESTEROL 60 MG/DL (>40); LDL CHOLESTEROL 102.6 MG/DL (<100); NON-HDL-C 117 MG/DL; POTASSIUM SERUM 4.5 MEQ/L (3.5-5.1); PSA SCREENING 1.46 NG/ML (< 4.0); SODIUM LEVEL 142 MEQ/L (136-145); THYROID STIMULATING HORMONE 0.641 uIU/ML (0.358-3.740); TOTAL PROTEIN 7.1 GM/DL (6.4-8.2); TRIGLYCERIDES LEVEL 72 MG/DL (<150); URIC ACID 5.6 MG/DL (3.5-7.2)
== END ==
LOC: M SFHCPLAZ 08:01
DX: I10 Essential (primary) hypertension (principal); E03.9 Hypothyroidism, unspecified; E78.4 Other hyperlipidemia; Z12.5 Encounter for screening for malignant neoplasm of prostate; M79.675 Pain in left toe(s); E55.9 Vitamin D deficiency, unspecified
CPT/HCPCS: 84443

== ENCOUNTER → 2018-07-09 | Outpatient (REF) | payer MEDICARE ==
[~2018-07-09] MED LIST changes: -DRIS50002 PO; +DRIS50003 PO
[2018-07-09 13:00] LABS: HEMATOCRIT 46.3 % (42.0-52.0); HEMOGLOBIN 15.8 g/dl (13.5-17.5); MEAN CORPUSCULAR HEMOGLOBIN 32.2 pg (27.0-33.0); MEAN CORPUSCULAR HGB CONC 34.1 g/dl (32.0-36.5); MEAN CORPUSCULAR VOLUME 94.5 fl (80.0-96.0); PLATELET COUNT, AUTOMATED 244 10^3/uL (150-450); WHITE BLOOD COUNT 7.3 10^3/uL (4.0-10.0)
[2018-07-09 14:26] LABS: ALBUMIN 4.2 GM/DL (3.2-5.2); BILIRUBIN,TOTAL 0.5 MG/DL (0.2-1.0); CALCIUM LEVEL 8.8 MG/DL (8.8-10.2); CREATININE FOR GFR 1.38 MG/DL (0.70-1.30); FREE T4 1.22 NG/DL (0.76-1.46); GLOMERULAR FILTRATION RATE 54.9 (>49); POTASSIUM SERUM 5.3 MEQ/L (3.5-5.1); THYROID STIMULATING HORMONE 3.27 uIU/ML (0.358-3.740); TOTAL PROTEIN 7.2 GM/DL (6.4-8.2)
== END ==
LOC: M SFHCADAM 08:00
PROVIDERS: ATTEND Physician Assistant
DX: I12.9 Hypertensive chronic kidney disease with stage 1 through stage 4 chronic kidney disease, or unspecified chronic kidney disease (principal); E55.9 Vitamin D deficiency, unspecified; N40.0 Benign prostatic hyperplasia without lower urinary tract symptoms
CPT/HCPCS: 80053; 82306; 84439; 84443; 85027; G0103; G0463

== ENCOUNTER 2019-06-23 10:22 | Emergency (ER) | payer MEDICARE, MEDICAID ==
[~2019-06-23] VITALS: Ht 170.2 cm; Wt 72.1 kg
[~2019-06-23 10:22] MED LIST changes: -LEVO50TA5 PO; -LISI10TA4 PO; -OXYB5TAB10 PO
[2019-06-23] MEDS ORDERED: LEVO50TA5 PO (10:31)
[2019-06-23] MEDS ORDERED: OXYB5TAB10 PO (10:31)
[2019-06-23] MEDS ORDERED: LISI10TA4 PO ×2 (10:31→12:19)
[2019-06-23 11:05] LABS: HEMATOCRIT 47.5 % (42.0-52.0); HEMOGLOBIN 16.2 g/dl (13.5-17.5); MEAN CORPUSCULAR HEMOGLOBIN 32.2 pg (27.0-33.0); MEAN CORPUSCULAR HGB CONC 34.1 g/dl (32.0-36.5); MEAN CORPUSCULAR VOLUME 94.4 fl (80.0-96.0); PLATELET COUNT, AUTOMATED 215 10^3/uL (150-450); RED BLOOD COUNT 5.03 10^6/uL (4.30-6.10); WHITE BLOOD COUNT 7.4 10^3/uL (4.0-10.0)
[2019-06-23 11:23] LABS: CALCIUM LEVEL 8.6 MG/DL (8.8-10.2); CREATININE FOR GFR 1.3 MG/DL (0.70-1.30); GLOMERULAR FILTRATION RATE 58.6 (>49); POTASSIUM SERUM 4.2 MEQ/L (3.5-5.1)
[2019-06-23] MEDS ORDERED: lisinopriL 10 MG TAB PO ONE (12:00)
[2019-06-23 12:16] VITALS: BP 169/109
[2019-06-23 13:53] VITALS: BP 154/96
--- NOTE | 2019-06-23 14:46 | ECGEPIP ---
[facility] - ED Test Date: 2019-06-23 Pat Name: NEDA BARAKAT Department: Room: - Gender: Male [employer]: [facility] : 1950 Requested By: Lluvia Baca Order Number: [id number] Reading MD: Alejandro Cuellar Measurements Intervals [place] Rate: 60 P: 57 KS: 117 QRS: 19 QRSD: 85 T: 38 QT: 423 QTc: 426 Interpretive Statements SINUS RHYTHM WITH SHORT [place] INTERVAL Nonspecific ST-T wave abnormalities Electronically Signed on 06-23-2019 14:45:54 EST by Alejandro Cuellar
== END 2019-06-23 13:54 | disposition home or self-care (01) ==
LOC: M ED 10:22
DX: I10 Essential (primary) hypertension (principal); N18.3 Chronic kidney disease, stage 3 (moderate); G43.909 Migraine, unspecified, not intractable, without status migrainosus; J44.9 Chronic obstructive pulmonary disease, unspecified; E03.9 Hypothyroidism, unspecified; Z87.891 Personal history of nicotine dependence; Z88.5 Allergy status to narcotic agent; Z79.82 Long term (current) use of aspirin; Z79.899 Other long term (current) drug therapy

== ENCOUNTER → 2019-06-23 | Outpatient (REF) | payer MEDICARE, MEDICAID ==
[~2019-06-23] MED LIST changes: -ASPI1TAB PO; +ASPI81TA26 PO; +LEVO50TA5 PO; +LISI10TA4 PO; +LISI20TA20 PO; -LISI20TA3 PO; +OXYB5TAB10 PO
[2019-06-23 14:04] LABS: FREE T4 0.9 NG/DL (0.76-1.46); THYROID STIMULATING HORMONE 13.9 uIU/ML (0.358-3.740)
== END ==
LOC: M LAB REF 12:40
PROVIDERS: ATTEND Nurse Practitioner Family
DX: E03.9 Hypothyroidism, unspecified (principal)

== ENCOUNTER → 2019-07-29 | Outpatient (REF) | payer MEDICARE, MEDICAID ==
[~2019-07-29] MED LIST changes: +LEVO50TA5 PO; +LISI10TA4 PO; +OXYB5TAB10 PO
[2019-07-29 15:54] LABS: CHOLESTEROL RISK RATIO 2.793 (<5); FREE T4 0.94 NG/DL (0.76-1.46); THYROID STIMULATING HORMONE 8.15 uIU/ML (0.358-3.740)
== END ==
LOC: M SFHCADAM 11:29
PROVIDERS: ATTEND Physician Assistant
DX: I10 Essential (primary) hypertension (principal); E03.9 Hypothyroidism, unspecified; E78.00 Pure hypercholesterolemia, unspecified
CPT/HCPCS: 80061; 84439; 84443; G0463

== ENCOUNTER → 2020-04-04 | Outpatient (REF) | payer MEDICARE, MEDICAID ==
[2020-04-04 18:43] LABS: FREE T3 3.1 PG/ML (2.2-4.0); FREE T4 0.95 NG/DL (0.76-1.46); THYROID STIMULATING HORMONE 8.51 uIU/ML (0.358-3.740)
== END ==
LOC: M LAB REF 17:02
PROVIDERS: ATTEND Nurse Practitioner Family
DX: E03.9 Hypothyroidism, unspecified (principal)

== ENCOUNTER → 2020-11-02 | Outpatient (REF) | payer MEDICARE, MEDICAID ==
[~2020-11-02] MED LIST changes: +LISI10TA22 PO; -LISI10TA4 PO
[2020-11-02 14:17] LABS: HEMATOCRIT 51.3 % (42.0-52.0); HEMOGLOBIN 16.7 g/dl (13.5-17.5); MEAN CORPUSCULAR HEMOGLOBIN 31.6 pg (27.0-33.0); MEAN CORPUSCULAR HGB CONC 32.6 g/dl (32.0-36.5); MEAN CORPUSCULAR VOLUME 97.2 fl (80.0-96.0); PLATELET COUNT, AUTOMATED 228 10^3/uL (150-450); RED BLOOD COUNT 5.28 10^6/uL (4.30-6.10); WHITE BLOOD COUNT 7.6 10^3/uL (4.0-10.0)
[2020-11-02 15:49] LABS: ALBUMIN 4.3 GM/DL (3.2-5.2); BILIRUBIN,TOTAL 0.5 MG/DL (0.2-1.0); CALCIUM LEVEL 9.3 MG/DL (8.8-10.2); CHOLESTEROL RISK RATIO 2.954 (<5); CREATININE FOR GFR 1.4 MG/DL (0.70-1.30); FREE T4 1.01 NG/DL (0.76-1.46); GLOMERULAR FILTRATION RATE 53.7 (>49); POTASSIUM SERUM 4.9 MEQ/L (3.5-5.1); THYROID STIMULATING HORMONE 7.36 uIU/ML (0.358-3.740); TOTAL PROTEIN 7.5 GM/DL (6.4-8.2)
[2020-11-02 16:28] LABS: CREATININE, URINE 97.3 MG/DL; MAU/CREAT RATIO 412.1 MCG/MG (0.0-30.0)
== END ==
LOC: M SFHCADAM 09:15
PROVIDERS: ATTEND Physician Assistant
DX: E03.9 Hypothyroidism, unspecified (principal); I12.9 Hypertensive chronic kidney disease with stage 1 through stage 4 chronic kidney disease, or unspecified chronic kidney disease; E78.00 Pure hypercholesterolemia, unspecified; N40.1 Benign prostatic hyperplasia with lower urinary tract symptoms; N18.30 Chronic kidney disease, stage 3 unspecified
CPT/HCPCS: 80053; 80061; 82043; 84439; 84443; 85027; G0103

== ENCOUNTER → 2020-12-05 | Outpatient (REF) | payer MEDICARE, MEDICAID ==
[~2020-12-05] MED LIST changes: -LISI20TA20 PO; +LISI20TA37 PO
[2020-12-08 23:07] LABS: PSA TOTAL 2.1 ng/mL (0.0-4.0)
== END ==
LOC: M LAB REF 16:44
PROVIDERS: ATTEND Nurse Practitioner Family
DX: E83.42 Hypomagnesemia (principal); N42.9 Disorder of prostate, unspecified

== ENCOUNTER → 2020-12-06 | Outpatient (CLI) | payer MEDICARE, MEDICAID ==
[~2020-12-06] MED LIST changes: +LISI20TA20 PO; -LISI20TA37 PO
--- NOTE | 2020-12-06 08:29 | REP ---
INDICATION: NICOTINE DEPENDENCE COMPARISON: 07/14/2011 TECHNIQUE: Axial noncontrast images from the thoracic inlet to the upper abdomen using low-dose lung screening technique (LDCT). FINDINGS: Advanced COPD/emphysematous changes with bronchiectasis and scattered scarring again noted. No suspicious consolidation, nodule or mass lesion. No effusion. No pneumothorax. Linear scarring at the bilateral bases and small rounded area of chronic scarring along the medial right middle lobe are similar to 2012 and without significant progression. IMPRESSION: Lung-RADS category 2-S. Advanced emphysematous changes and stable findings. Management recommendations include annual low-dose CT surveillance. <Electronically signed by Tacos Hutchinson > 12/06/20 [id number]
== END ==
LOC: M RAD 07:12
PROVIDERS: ATTEND Physician Assistant
DX: F17.211 Nicotine dependence, cigarettes, in remission (principal)

== ENCOUNTER → 2020-12-11 | Outpatient (CLI) | payer MEDICARE, MEDICAID ==
--- NOTE | 2020-12-11 12:18 | REP ---
INDICATION: CKD STAGE 3A, FREQUENCY OF MICTURITION. COMPARISON: 06/30/2014. TECHNIQUE: Real-time sonographic evaluation of the kidneys is performed. FINDINGS: Renal cortex is somewhat increased in echotexture bilaterally suggesting medical renal disease. There is no hydronephrosis bilaterally. There are bilateral renal cysts. A cyst in the upper pole of the right kidney measures 1.4 cm in maximum diameter and in the lower pole 1.6 cm. A cyst in the upper pole the left kidney measures 1.1 cm in maximum diameter. The right kidney measures 11.0 x 4.5 x 6.0 cm. Left renal dimensions are 12.2 x 4.1 x 5.5 cm. IMPRESSION: Increased echotexture of the kidneys suggests medical renal disease. No hydronephrosis. Bilateral renal cysts. <Electronically signed by Jayce Santiago > 12/11/20 [id number]
--- NOTE | 2020-12-11 12:20 | REP ---
INDICATION: CKD STAGE 3A, FREQUENCY OF MICTURITION. COMPARISON: None. TECHNIQUE: Real-time sonographic evaluation of urinary bladder performed. FINDINGS: The bladder measures 12.2 x 7.3 x 7.5 cm for total volume of 348 cc. Postvoid residual is 53 cc, 15% of the original volume. No bladder mass or wall thickening is seen. There is no bladder calculus. Ureteral jets are visualized bilaterally with Doppler color evaluation. IMPRESSION: No bladder mass or calculus. Postvoid residual 15% as discussed above. <Electronically signed by Jayce Santiago > 12/11/20 [id number]
== END ==
LOC: M RAD 10:14
PROVIDERS: ATTEND Nurse Practitioner Family
DX: N18.31 Chronic kidney disease, stage 3a (principal); R35.0 Frequency of micturition

== ENCOUNTER → 2021-08-10 | Outpatient (REF) | payer MEDICARE, MEDICAID ==
[~2021-08-10] MED LIST changes: -LISI20TA20 PO; +LISI20TA37 PO
[2021-08-10 18:00] LABS: FREE THYROXINE INDEX 3.9 % (1.4-3.8); THYROID STIMULATING HORMONE 5.5 uIU/ML (0.358-3.740); THYROXINE (T4) 10.5 UG/DL (4.5-12.0)
== END ==
LOC: M LAB REF 16:43
PROVIDERS: ATTEND Nurse Practitioner Family
DX: E03.9 Hypothyroidism, unspecified (principal)

== ENCOUNTER → 2022-05-07 | Outpatient (REF) | payer MEDICARE, MEDICAID ==
[2022-05-07 18:11] LABS: FREE T4 1.39 NG/DL (0.89-1.76); THYROID STIMULATING HORMONE 5.114 uIU/ML (0.55-4.78)
== END ==
LOC: M LAB REF 16:57
PROVIDERS: ATTEND Nurse Practitioner Family
DX: E03.9 Hypothyroidism, unspecified (principal)

== ENCOUNTER → 2022-06-25 | Outpatient (CLI) | payer MEDICARE, MEDICAID ==
[~2022-06-25] MED LIST changes: +ALBU2.5V10; +AMLO1TAB24 PO; +LEVO25TA5 PO; +LISI20TA33 PO; +TAMS1CAP17 PO
== END ==
LOC: M ADAMS 13:42
PROVIDERS: ATTEND Physician Assistant
DX: J44.9 Chronic obstructive pulmonary disease, unspecified (principal)

== ENCOUNTER → 2022-08-15 | Outpatient (CLI) | payer MEDICARE, MEDICAID | LOC: M LABSMTC 08:19 | PROVIDERS: ATTEND Anesthesiology | DX: Z01.812 Encounter for preprocedural laboratory examination (principal) ==

== ENCOUNTER 2022-08-20 08:24 | Day surgery (SDC) | payer MEDICARE, MEDICAID ==
[~2022-08-20] VITALS: Ht 174 cm; Wt 74.3 kg
[~2022-08-20 08:24] MED LIST changes: +NS 1,000 ML IV ONE
[2022-08-20] MEDS ORDERED: LIDOCAINE 2% 100MG/5ML SDV (FOR ANES.) As Ordered ONE (08:57)
[2022-08-20] MEDS ORDERED: propofoL 200 MG/20 ML VIAL As Ordered ONE (08:57)
[2022-08-20 09:43] VITALS: BP 135/70
== END 2022-08-20 10:25 | disposition home or self-care (01) ==
LOC: M OPP 08:24
PROVIDERS: ATTEND Surgery
DX: Z86.010 Personal history of colon polyps (principal); D12.0 Benign neoplasm of cecum; D12.3 Benign neoplasm of transverse colon; D12.5 Benign neoplasm of sigmoid colon; K64.2 Third degree hemorrhoids; K57.30 Diverticulosis of large intestine without perforation or abscess without bleeding; I10 Essential (primary) hypertension; E78.00 Pure hypercholesterolemia, unspecified; J44.9 Chronic obstructive pulmonary disease, unspecified; E03.9 Hypothyroidism, unspecified; N40.0 Benign prostatic hyperplasia without lower urinary tract symptoms; Z79.51 Long term (current) use of inhaled steroids; Z79.82 Long term (current) use of aspirin; Z79.890 Hormone replacement therapy; Z79.899 Other long term (current) drug therapy; Z87.891 Personal history of nicotine dependence; Z88.5 Allergy status to narcotic agent

== ENCOUNTER → 2022-09-05 | Outpatient (REF) | payer MEDICARE, MEDICAID ==
[~2022-09-05] MED LIST changes: -NS 1,000 ML IV ONE
[2022-09-05 19:24] LABS: THYROID STIMULATING HORMONE 2.843 uIU/ML (0.55-4.78)
[2022-09-05 19:25] LABS: FREE T4 1.15 NG/DL (0.89-1.76)
== END ==
LOC: M LAB REF 16:51
PROVIDERS: ATTEND Nurse Practitioner Family
DX: E03.9 Hypothyroidism, unspecified (principal)

== ENCOUNTER → 2022-09-20 | Outpatient (REF) | payer MEDICARE, MEDICAID ==
[2022-09-20 13:39] LABS: CHOLESTEROL RISK RATIO 3.31 (<5); HDL CHOLESTEROL 53.4 MG/DL (>40); LDL CHOLESTEROL 110.4 MG/DL (<100); NON-HDL-C 123.6 MG/DL
[2022-09-20 13:43] LABS: FREE T4 1.17 NG/DL (0.89-1.76); THYROID STIMULATING HORMONE 2.642 uIU/ML (0.55-4.78)
== END ==
LOC: M SFHCADAM 08:55
PROVIDERS: ATTEND Physician Assistant
DX: E03.9 Hypothyroidism, unspecified (principal); E78.00 Pure hypercholesterolemia, unspecified; Z12.5 Encounter for screening for malignant neoplasm of prostate

== ENCOUNTER → 2022-10-07 | Outpatient (CLI) | payer MEDICARE, MEDICAID | LOC: M RAD 08:40 | PROVIDERS: ATTEND Physician Assistant | DX: Z12.2 Encounter for screening for malignant neoplasm of respiratory organs (principal); F17.211 Nicotine dependence, cigarettes, in remission ==

== ENCOUNTER → 2023-05-07 | Outpatient (REF) | payer MEDICARE, MEDICAID ==
[~2023-05-07] MED LIST changes: -OXYB5TAB10 PO; +OXYB5TAB11 PO
[2023-05-07 17:55] LABS: FREE T4 0.94 NG/DL (0.89-1.76)
[2023-05-07 17:56] LABS: THYROID STIMULATING HORMONE 10.275 uIU/ML (0.55-4.78)
== END ==
LOC: M LAB REF 16:48
PROVIDERS: ATTEND Nurse Practitioner Family
DX: E03.9 Hypothyroidism, unspecified (principal)

== ENCOUNTER → 2023-08-05 | Outpatient (REF) | payer MEDICARE, MEDICAID ==
[~2023-08-05] MED LIST changes: -OXYB5TAB11 PO; +OXYB5TAB14 PO
[2023-08-05 13:16] LABS: BASO % 0.4 % (0.0-1.0); EOS # 0.1 10^3/uL (0.0-0.5); HEMATOCRIT 48.1 % (42.0-52.0); LYMPH # 1.1 10^3/uL (1.5-5.0); LYMPH % 13.3 % (24.0-44.0); MEAN CORPUSCULAR HEMOGLOBIN 31.9 pg (27.0-33.0); MEAN CORPUSCULAR HGB CONC 33.3 g/dl (32.0-36.5); MEAN CORPUSCULAR VOLUME 95.8 fl (80.0-96.0); MONO # 0.5 10^3/uL (0.0-0.8); MONO % 5.5 % (2.0-8.0); NEUTROPHILS # 6.5 10^3/uL (1.5-8.5); NEUTROPHILS % 79.6 % (36.0-66.0); PLATELET COUNT, AUTOMATED 249 10^3/uL (150-450); RED BLOOD COUNT 5.02 10^6/uL (4.30-6.10); WHITE BLOOD COUNT 8.2 10^3/uL (4.0-10.0)
[2023-08-05 13:17] LABS: APPEARANCE, URINE CLEAR (CLEAR); BACTERIA, URINE AUTO NEGATIVE (NEGATIVE); BILIRUBIN, URINE AUTO NEGATIVE (NEGATIVE); BLOOD, URINE BLOOD NEGATIVE (NEGATIVE); COLOR, URINE STRAW (YELLOW); GLUCOSE, URINE (UA) AUTO NEGATIVE (NEGATIVE); KETONE, URINE AUTO NEGATIVE (NEGATIVE); LEUKOCYTE ESTERASE, URINE AUTO NEGATIVE (NEGATIVE); MUCUS, URINE SMALL (NEGATIVE); NITRITE, URINE AUTO NEGATIVE (NEGATIVE); PROTEIN, URINE AUTO NEGATIVE (NEGATIVE); RBC, URINE AUTO 1 /HPF (0-3); SPECIFIC GRAVITY URINE AUTO 1.005 (1.002-1.035); SQUAMOUS EPITHELIAL CELL UR AU 0 /HPF (0-6); UROBILINOGEN, URINE AUTO 0.2 mg/dL (0.0-2.0); WBC, URINE AUTO 0 /HPF (0-3)
[2023-08-05 13:35] LABS: HEMOGLOBIN A1c 4.5 % (4.0-6.0)
[2023-08-05 13:43] LABS: PSA SCREENING 1.51 NG/ML (< 4.00)
[2023-08-05 13:45] LABS: ALBUMIN 4.3 G/DL (3.2-5.2); ALKALINE PHOSPHATASE 68 U/L (46-116); ALT/SGPT 11 U/L (7.0-40); AST/SGOT < 8 U/L (<34); BILIRUBIN,TOTAL 0.5 MG/DL (0.3-1.2); BLOOD UREA NITROGEN 20 MG/DL (9-23); CALCIUM LEVEL 8.8 MG/DL (8.3-10.6); CARBON DIOXIDE LEVEL 25 MMOL/L (20-31); CHLORIDE LEVEL 109 MMOL/L (98-107); CHOLESTEROL LEVEL 163 MG/DL (<200); CHOLESTEROL RISK RATIO 2.99 (<5); CREATININE FOR GFR 1.21 MG/DL (0.70-1.30); GLOMERULAR FILTRATION RATE > 60.0 (>42); GLUCOSE, FASTING 85 MG/DL (74-106); HDL CHOLESTEROL 54.4 MG/DL (>40); NON-HDL-C 108.6 MG/DL; POTASSIUM SERUM 4.7 MMOL/L (3.5-5.1); SODIUM LEVEL 139 MMOL/L (136-145); TOTAL PROTEIN 7.4 G/DL (5.7-8.2); TRIGLYCERIDES LEVEL 68 MG/DL (<150)
[2023-08-05 13:48] LABS: FREE T4 1.18 NG/DL (0.89-1.76)
== END ==
LOC: M SFHCADAM 09:34
PROVIDERS: ATTEND Physician Assistant
DX: R35.0 Frequency of micturition (principal); I10 Essential (primary) hypertension; F17.211 Nicotine dependence, cigarettes, in remission; R91.1 Solitary pulmonary nodule; J44.9 Chronic obstructive pulmonary disease, unspecified; N40.1 Benign prostatic hyperplasia with lower urinary tract symptoms; Z12.5 Encounter for screening for malignant neoplasm of prostate; E03.9 Hypothyroidism, unspecified; Z13.1 Encounter for screening for diabetes mellitus; Z79.899 Other long term (current) drug therapy
CPT/HCPCS: 80053; 80061; 81001; 83036; 84439; 84443; 85025; 87086; G0103

== ENCOUNTER → 2023-09-10 | Outpatient (REF) | payer MEDICARE, MEDICAID ==
[2023-09-10 18:50] LABS: FREE T4 1.26 NG/DL (0.89-1.76)
[2023-09-10 18:51] LABS: THYROID STIMULATING HORMONE 1.682 uIU/ML (0.55-4.78)
== END ==
LOC: M LAB REF 17:17
PROVIDERS: ATTEND Nurse Practitioner Family
DX: E03.9 Hypothyroidism, unspecified (principal)

== ENCOUNTER → 2023-09-11 | Outpatient (CLI) | payer MEDICARE, MEDICAID | LOC: M PLAIMG 12:22 | PROVIDERS: ATTEND Nurse Practitioner Family | DX: R05.1 Acute cough (principal) ==

== ENCOUNTER → 2023-10-02 | Outpatient (CLI) | payer MEDICARE, MEDICAID | LOC: M PLALAB 09:41 | PROVIDERS: ATTEND Urology | DX: N40.0 Benign prostatic hyperplasia without lower urinary tract symptoms (principal); Z12.5 Encounter for screening for malignant neoplasm of prostate | CPT/HCPCS: 36415; G0103 ==

== ENCOUNTER → 2024-05-28 | Outpatient (CLI) | payer MEDICARE, MEDICAID | LOC: M RAD 07:31 | PROVIDERS: ATTEND Physician Assistant | DX: R91.1 Solitary pulmonary nodule (principal) ==

== ENCOUNTER → 2024-06-01 | Outpatient (REF) | payer MEDICARE, MEDICAID ==
[2024-06-01 19:14] LABS: THYROID STIMULATING HORMONE 2.84 uIU/ML (0.55-4.78)
[2024-06-01 19:16] LABS: FREE T4 1.45 NG/DL (0.89-1.76)
== END ==
LOC: M LAB REF 17:36
PROVIDERS: ATTEND Nurse Practitioner Family
DX: E03.9 Hypothyroidism, unspecified (principal)